=== PATIENT | female | born 1995 | race Caucasian/White ===

== ENCOUNTER 2016-09-08 11:59 | Observation (INO) ==
--- NOTE | 2016-09-08 12:16 | Emergency Department Note ---
Disposition Clinical Impression: Intrauterine UTI (urinary tract infection) Qualifiers: Urinary tract infection type: acute cystitis Hematuria presence: without hematuria Qualified Code(s): N30.00 - Acute cystitis without hematuria Disposition: Admitted As Inpatient Condition: Good Time of Disposition: 16:03 HPI - General Chief complaint: ED Vaginal Bleeding Stated complaint: cramping/bleeding (13w prego) Time Seen by Provider: 09/08/16 12:10 Source: patient Mode of arrival: ambulatory Limitations: no limitations Nursing Notes Reviewed: Yes Vital Signs Reviewed: Yes - History of Present Illness HPI Narrative: Concern about status. 21-year-old states she is about 13 weeks who comes in with crampy abdominal pain and some vaginal bleeding. States symptoms began this morning. 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 Consistency: constant Location: pelvis, abdomen Pain Severity: moderate Quality: cramping Improves with: none Worsens with: none Associated symptoms: Reports: vaginal bleeding Vaginal discharge: bloody Vaginal bleeding: light Confirmation of LMP: Yes : yes Number of weeks : 13 - Related Data : 1 Para: 0 Ab: 0 Home Medications Medication Instructions Recorded Confirmed Diphenhydramine HCl [Allergy] 25 mg PO DAILY 09/08/16 09/08/16 Famotidine [Heartburn Prevention] 20 mg PO BID 09/08/16 09/08/16 Ferrous Sulfate [Iron] 325 mg PO BID 09/08/16 09/08/16 Ondansetron [Zofran] 4 mg PO TID PRN 09/08/16 09/08/16 Potassium Chloride [Klor-Con 10] 10 meq PO DAILY 09/08/16 09/08/16 Promethazine [Phenergan] 25 mg PO Q4-6H PRN 09/08/16 09/08/16 Pyridoxine HCl [Vitamin B-6] 50 mg PO HS 09/08/16 09/08/16 Allergies Allergy/AdvReac Type Severity Reaction Status Date / Time No Known Allergies Allergy Verified 09/08/16 12:03 All systems ED: reviewed and negative except as stated. Constitutional: Denies: fever, chills, weakness, weight change Eyes: Denies: eye pain, eye discharge, vision change ENT ED: Denies: ear pain, throat pain, dental pain, hearing loss, epistaxis, congestion, dysphagia Cardiovascular: Denies: chest pain, palpitations, dyspnea on exertion, edema, syncope Respiratory: Denies: cough, dyspnea, wheezes, hemoptysis, stridor Gastrointestinal: Reports: abdominal pain. Denies: nausea, vomiting, diarrhea, constipation, hematemesis, melena, hematochezia Genitourinary: Reports: other (Vaginal bleeding). Denies: dysuria, frequency, hematuria, discharge Musculoskeletal: Denies: back pain, neck pain, arthralgia, myalgia Integumentary: Denies: rash, abrasion, lesions Neurological: Denies: headache, weakness, numbness, paresthesias, confusion, abnormal gait, vertigo Psychiatric: Denies: anxiety, depression, suicidal thoughts, homicidal thoughts , auditory hallucinations, visual hallucinations Endocrine: Denies: fatigue Hematological/Lymphatic: Denies: easy bleeding, easy bruising Allergic/Immunologic: Denies: facial swelling, urticaria PMH - Social History Smoking Status: Never smoker Alcohol use: Reports: none Drug use: Reports: none Physical Exam - General Limitations: no limitations General appearance: alert Course - Reevaluation(s) Reevaluation #1: 21-year-old who is in first trimester of who had some vaginal bleeding today. Workup included an ultrasound showed a 12 week 5 days. Patient has too numerous to count white cells in her urine. Patient was given a liter of fluid still feels nauseated and doesn't feel that she can eat. Discussed with [facility] will admit for IV hydration and fluids. Time: 16:02 - Consultations Consultation #1: Discussed with Sveta Pratt, we'll admit to [facility]PER[facility]. Time: 17:28 Consultation #2: Return call from [facility] CRUS[facility] OPERATOR and they will not take the patient as she is under 20 weeks and recommended admission to the hospitalist. Time: 17:31 Consultation #3: Discussed with Meredith Ivan nurse practitioner she is going to discuss it with her attending and she doesn't feel that she come to the medicine service. Time: 17:47 Vital Signs Temperature 97.6 F 09/08/16 12:03 Pulse Rate 141 09/08/16 12:03 Respiratory Rate 20 09/08/16 12:03 Blood Pressure 135/81 09/08/16 12:03 O2 Sat by Pulse Oximetry 96 09/08/16 12:03 Temperature 97.5 F L 09/09/16 15:37 Pulse Rate 104 09/09/16 15:37 Respiratory Rate 18 09/09/16 15:37 Blood Pressure 100/65 09/09/16 15:37 O2 Sat by Pulse Oximetry 98 09/09/16 15:37 Oxygen Delivery Oxygen Delivery Room Air OB/Uterine Contractions - Lab Data Lab results reviewed: Yes I reviewed the patient's lab results. Result diagrams: 09/09/16 04:34 09/09/16 04:34 Lab Results 09/08/16 09/08/16 09/08/16 Range/Units 12:35 12:35 15:04 WBC 6.4 (4.3-11.1) K/mcL RBC 3.39 L (3.82-4.97) M/mcL Hgb 8.9 L (11.5-15.4) g/dL Hct 27.6 L (35.3-44.9) % MCV 81.4 L (83.0-100.0) fL MCH 26.3 L (28.0-33.3) pg MCHC 32.2 (31.6-35.5) g/dL RDW 19.0 H (11.5-14.5) % Plt Count 246 (140-400) K/mcL MPV 9.0 L (9.4-12.4) fL Immature Gran % 2.0 (0-4) % Seg Neutrophils % 79.2 % Lymphocytes % 12.7 % Monocytes % 4.2 % Eosinophils % 1.6 % Basophils % 0.3 % Neutrophils # 5.1 (1.6-8.9) K/mcL Lymphocytes # 0.8 (0.6-4.6) K/mcL Monocytes # 0.3 (0.0-1.3) K/mcL Eosinophils # 0.1 (0.0-0.6) K/mcL Basophils # 0.0 (0.0-0.2) K/mcL Sodium 134 L (136-145) mEq/L Potassium 3.2 L (3.5-4.5) mEq/L Chloride 108 (98-109) mEq/L Carbon Dioxide 19 (19-29) mEq/L BUN 4 L (7-20) mg/dL Creatinine 0.60 (0.57-1.11) mg/dL Est GFR ( Amer) > 60 (> 60) Est GFR (Non-Af Amer) > 60 (> 60) BUN/Creatinine Ratio 7 (6-26) Glucose 112 H (70-99) mg/dL Calculated Osmolality 276 L (280-300) Calcium 8.3 L (8.6-10.8) mg/dL Beta HCG, Quant 95223 H (0-4) mIU/ml Urine Color Yellow (Yellow) Urine Clarity Cloudy A (Clear) Urine pH 7.5 (5.0-8.0) pH Units Ur Specific [place] 1.010 (1.010-1.025) Urine Protein Negative (Neg-Trace) mg/dL Urine Glucose (UA) Normal (Normal) mg/dL Urine Ketones Negative (Negative) mg/dL Urine Blood Moderate H (Negative) Urine Nitrite Negative (Negative) Urine Bilirubin Negative (Negative) Urine Urobilinogen Normal (Normal) mg/dL Ur Leukocyte Esterase Large H (Negative) Urine Microscopic RBC 3-5 H (0-3) per hpf Urine Microscopic WBC TNTC H (0-3) per hpf Ur Squamous Epith Cells Many H (None-Few) per lpf Urine Bacteria Many H (None-Few) per hpf Hyaline Casts Few (None-Few) per lpf Ur Culture Indicated? YES A (NO) - Radiology Data Radiology results reviewed: Yes I reviewed the patient's radiology results. Obstetrics Ultrasound 09/08/16 12:12 IMPRESSION: Single live intrauterine gestation with estimated age of 12 weeks 4 days. D/ / Britni Francis MD / Britni Francis MD Interpreting Provider: Britni Francis MD
[2016-09-08 13:16] LABS: Basophils % 0.3 %; Eosinophils # 0.1 K/mcL (0.0-0.6); Eosinophils % 1.6 %; Hematocrit 27.6 % (35.3-44.9); Hemoglobin 8.9 g/dL (11.5-15.4); Lymphocytes # 0.8 K/mcL (0.6-4.6); Lymphocytes % 12.7 %; Mean Corpuscular HGB Conc 32.2 g/dL (31.6-35.5); Mean Corpuscular Hemoglobin 26.3 pg (28.0-33.3); Mean Corpuscular Volume 81.4 fL (83.0-100.0); Monocytes # 0.3 K/mcL (0.0-1.3); Monocytes % 4.2 %; Neutrophils # 5.1 K/mcL (1.6-8.9); Platelet Count 246 K/mcL (140-400); Red Blood Count 3.39 M/mcL (3.82-4.97); Segmented Neutrophils % 79.2 %
[2016-09-08 13:29] LABS: BUN/Creatinine Ratio 7 (6-26); Calcium 8.3 mg/dL (8.6-10.8); Carbon Dioxide 19 mEq/L (19-29); Chloride 108 mEq/L (98-109); Glucose 112 mg/dL (70-99); Osmolality,Calculated 276 (280-300); Potassium 3.2 mEq/L (3.5-4.5); Sodium 134 mEq/L (136-145); eGFR For African Americans > 60 (> 60); eGFR For Non-African Americans > 60 (> 60)
[2016-09-08 13:30] LABS: Blood Urea Nitrogen 4 mg/dL (7-20)
[2016-09-08] MEDS ORDERED: 0.9 % Sodium Chloride 1,000 ML IVC ONE (15:04)
[2016-09-08 15:33] LABS: Bilirubin,Urine Negative (Negative); Blood,Urine Moderate (Negative); Clarity,Urine Cloudy (Clear); Color,Urine Yellow (Yellow); Glucose,Urine (UA) Normal (Normal); Ketones,Urine Negative (Negative); Leukocyte Esterase,Urine Large (Negative); Nitrite,Urine Negative (Negative); PH,Urine 7.5 pH Units (5.0-8.0); Protein,Urine Negative (Neg-Trace); Urobilinogen,Urine Normal (Normal)
[2016-09-08 15:40] LABS: Bacteria,Urine Many per hpf (None-Few); Hyaline Casts,Urine Few per lpf (None-Few); Squamous Epithelial Cell,Urine Many per lpf (None-Few); WBC,Urine TNTC per hpf (0-3)
[2016-09-08] MEDS ORDERED: Acetaminophen 325 MG TABLET PO ONE (17:12)
[2016-09-08] MEDS ORDERED: Naloxone 0.4 MG/ML INJ IVP PRN (21:17)
[2016-09-08] MEDS ORDERED: Ondansetron 4 MG/2 ML VIAL IVP PRN (21:17)
[2016-09-08] MEDS ORDERED: Pyridoxine (B-6) 50 MG TABLET PO SCH (21:45)
--- NOTE | 2016-09-08 21:48 | Internal Med History&Physical ---
<Meredith Ivan - Last Filed: 09/08/16 22:21> Date of Encounter: 09/08/16 Time of Encounter: 21:00 Assessment and Plan (1) UTI (urinary tract infection) Current visit: Yes Status: Acute 1 is in complaining of lower abdominal pain UA did reveal moderate blood and large amount of gastritis many bacteria. She is started on Rocephin IV due to nausea. Presently she is requesting food, as long as nausea subsided patient will be started on oral antibiotics upon discharge-follow up with AUTHOR AGENT as outpatient Qualifiers: Urinary tract infection type: acute cystitis Hematuria presence: without hematuria Qualified Code(s): N30.00 - Acute cystitis without hematuria (2) Intrauterine Current visit: Yes Status: Acute 1 patient is 12 weeks 4 days gestation per vaginal ultrasound-patient is to continue follow-up with AUTHOR AGENT as outpatient (3) Anemia Current visit: Yes Status: Acute 1 we will check iron profile in am 2 continue with ferrous sulfate twice a day 3 recheck CBC in a.m. Qualifiers: Anemia type: unspecified type Qualified Code(s): D64.9 - Anemia, unspecified (4) Hypokalemia Current visit: Yes Status: Acute 1 potassium 3.2. We will replace and recheck in a.m. 2 continue with potassium supplement daily Internal Medicine - H&P: HPI Chief complaint: Abdominal pain spotting 12 weeks Admitted From: Emergency Dept Plans for Post Hospital Care: Home History of present illness: Ms. Coates is a 21 year old female with no past medical history, she is presently 12 weeks . According to the patient she was awakened this morning with abdominal cramping pain radiating across her lower abdomen. She did get up and use of bathroom when she noted drops of bright red blood in the toilet. She presented to the ER for evaluation. Operative reveal no leukocytosis hemoglobin 8.9 potassium is 3.2 urinalysis was performed which did reveal moderate amount of blood large amount of leuk esters and many bacteria urine vaginal ultrasound was completed which did show a live intrauterine 12 week 5 day fetus, no blood in vaginal vault. Patient was tachycardic heart rate was 140 on presentation and has been 120-110 She nauseated and unable to eat she was given IV fluids. She was given IV Rocephin and has been admitted for further workup evaluation. Presently the patient is requesting food she denies any nausea this time. She Sinus tach on monitor I review this case with Dr. Espinoza agrees with plan. Past Med Surg Social Fam HX - Past Medical History Medical history: other Psychiatric history: no psych history - Past Surgical History Surgical History: other - Social History Smoking Status: Never smoker Smokeless Tobacco Status: No Alcohol use: none Drug use: none - Family History Mother Living Status: Still Living Hx Family Cardiac Disorders: Yes (blood clots) Hx Family Neurologic Disorders: Yes (mini strokes, seizures, brain bleed) Father Living Status: Still Living Internal Medicine - H&P: Meds Diphenhydramine HCl [Allergy] 25 mg PO DAILY 09/08/16 [History] Famotidine [Heartburn Prevention] 20 mg PO BID 09/08/16 [History] Ferrous Sulfate [Iron] 325 mg PO BID 09/08/16 [History] Ondansetron [Zofran] 4 mg PO TID PRN 09/08/16 [History] Potassium Chloride [Klor-Con 10] 10 meq PO DAILY 09/08/16 [History] Promethazine [Phenergan] 25 mg PO Q4-6H PRN 09/08/16 [History] Pyridoxine HCl [Vitamin B-6] 50 mg PO HS 09/08/16 [History] cephALEXin [Keflex] 500 mg PO QID #40 capsule 09/08/16 [Rx] Allergies No Known Allergies Allergy (Verified 09/08/16 12:03) All Systems PM: A 10-system review of systems was performed and is negative for pertinent findings except as documented above in the HPI. - Constitutional Constitutional: no chills, no fever(s), no night sweats - EENT Eyes: no change in vision, no discharge, no pain, no photophobia Nose, mouth and throat: no dysphagia, no nasal discharge, no neck pain, no sore throat - Cardiovascular Cardiovascular ROS IM: no chest pain, no diaphoresis, no dyspnea, no lightheadedness, no palpitations, no syncope - Respiratory Respiratory: no cough, no dyspnea, no wheezing, no excessive phlegm production - Gastrointestinal Gastrointestinal: abdominal pain - Genitourinary Genitourinary: no change in urinary stream, no dysuria, no flank pain, no hematuria - Musculoskeletal Musculoskeletal ROS IM: no numbness, no tingling - Integumentary Integumentary IM: no rash, no unusual bruising - Neurological Neurological ROS: no confusion, no convulsions, no focal weakness, no numbness, no tingling, no tremor(s) - Hematologic/Lymphatic Hematologic/Lymphatic: no easy bruising - Constitutional Vitals: Temp Pulse Resp BP Pulse Ox 99.3 F 111 18 123/73 97 09/08/16 19:53 09/08/16 19:53 09/08/16 19:53 09/08/16 19:53 09/08/16 19:53 General appearance: Present: A&O X 3, answers questions appropriately - Head Head exam: Present: atraumatic, normocephalic - Eye Eye exam: Present: PERRL, conjuntiva pink, sclera anicteric Pupils: Present: PERRL - Neck Neck exam general surgery: Present: supple, trachea midline. Absent: lymphadenopathy - Respiratory Respiratory exam: Present: CTAB. Absent: accessory muscle use, rales, rhonchi, wheezes - Cardiovascular Cardiovascular exam: Present: RRR, +S1, +S2. Absent: diastolic murmur, gallop, rubs, systolic murmur - GI/Abdominal GI/Abdominal exam: Present: normal bowel sounds, soft, no peritoneal signs. Absent: distended, tenderness - Extremities Exam Extremities exam: Present: warm, radial pulses palpable and symetrical. Absent : calf tenderness, cyanotic, pedal edema - Neurological Exam Neurological exam: Present: CN II-XII intact, oriented X3, no focal deficits. Absent: pronater drift, facial droop, speech deficit - Skin Skin exam: Present: dry, intact Internal Med - H&P Results - Labs CBC & Chem 7: 09/08/16 12:35 09/08/16 12:35 - Diagnostic Studies Other Images Additional comments: Obstetrics Ultrasound 09/08/16 12:12 IMPRESSION: Single live intrauterine gestation with estimated age of 12 weeks 4 days. D/ / Britni Francis MD / Britni Francis MD Interpreting Provider: Britni Francis MD - VTE Reasons for not Prescribing Prophylaxis: Medical contraindication <Tra Espinoza - Last Filed: 09/08/16 23:06> Date of Encounter: 09/08/16 Internal Medicine - H&P: HPI History of present illness: Ms. Coates is a 21 year old female All Systems PM: A 10-system review of systems was performed and is negative for pertinent findings except as documented above in the HPI. - Constitutional Vitals: Temp Pulse Resp BP Pulse Ox 98.3 F 111 17 115/68 98 09/08/16 22:56 09/08/16 22:56 09/08/16 22:56 09/08/16 22:56 09/08/16 22:56 Internal Med - H&P Results - Labs CBC & Chem 7: 09/08/16 12:35 09/08/16 12:35 - Attending Attestation I independently obtained history and examined this patient and my medical decision-making was reviewed with the nurse practitioner, Meredith Ivan. I agree with the documented findings, disposition and treatment plan as described. My findings are summarized below: Patient is in no acute distress awake alert oriented. Heart is tachycardic and regular S1-S2. Lungs are clear. Abdomen is soft, there is suprapubic tenderness to palpation. Plan: IV antibiotics, follow-up urine culture. Tylenol and Pyridium as needed for pain. Continue care. Ferrous sulfate for anemia. Follow-up iron studies.
[2016-09-08] MEDS: Acetaminophen 325 MG TABLET PO PRN (22:48)
[2016-09-09 05:21] LABS: Basophils % 0.5 %; Eosinophils # 0.1 K/mcL (0.0-0.6); Eosinophils % 2.1 %; Hematocrit 27.4 % (35.3-44.9); Hemoglobin 8.8 g/dL (11.5-15.4); Immature Granulocytes % 2.1 % (0-4); Lymphocytes # 1.2 K/mcL (0.6-4.6); Lymphocytes % 20.5 %; Mean Corpuscular HGB Conc 32.1 g/dL (31.6-35.5); Mean Corpuscular Hemoglobin 26.7 pg (28.0-33.3); Mean Corpuscular Volume 83.3 fL (83.0-100.0); Mean Platelet Volume 9.4 fL (9.4-12.4); Monocytes # 0.3 K/mcL (0.0-1.3); Monocytes % 5.5 %; Neutrophils # 3.9 K/mcL (1.6-8.9); Platelet Count 223 K/mcL (140-400); Red Blood Count 3.29 M/mcL (3.82-4.97); Red Cell Distribution Width 19.5 % (11.5-14.5); Segmented Neutrophils % 69.3 %
[2016-09-09 05:32] LABS: BUN/Creatinine Ratio 7 (6-26); Calcium 8.7 mg/dL (8.6-10.8); Carbon Dioxide 21 mEq/L (19-29); Chloride 110 mEq/L (98-109); Glucose 91 mg/dL (70-99); Magnesium 1.8 mg/dL (1.6-2.6); Osmolality,Calculated 282 (280-300); Potassium 3.7 mEq/L (3.5-4.5); Sodium 138 mEq/L (136-145); eGFR For African Americans > 60 (> 60); eGFR For Non-African Americans > 60 (> 60)
[2016-09-09 05:34] LABS: % Iron Saturation 16 % (15-50); Blood Urea Nitrogen 4 mg/dL (7-20); Iron 47 mcg/dL (50-170); Transferrin 210 mg/dL (180-382)
[2016-09-09] MEDS ORDERED: Famotidine 20 MG TABLET PO SCH (07:30)
[2016-09-09] MEDS: Acetaminophen 325 MG TABLET PO PRN ×2 (10:10→14:12)
[2016-09-09] MEDS ORDERED: *HR* HYDROcodone/Acet 5/325 mg TABLET PO ONE (14:26)
--- NOTE | 2016-09-09 14:26 | Internal Med Progress Note ---
Date of Encounter: 09/09/16 Time of Encounter: 10:00 - Assessment and plan (1) DVT prophylaxis Current Visit: Yes Status: Acute Assessment and plan: Lovenox subcutaneously (2) Intrauterine Current Visit: Yes Status: Acute Assessment and plan: US pelvis shows live gestation. We will consult G[facility]ER (3) UTI (urinary tract infection) Current Visit: Yes Status: Acute Assessment and plan: We will continue Rocephin iv. no signs of pyelonephritis. Follow-up for urine culture. Qualifiers: Urinary tract infection type: acute cystitis Hematuria presence: without hematuria Qualified Code(s): N30.00 - Acute cystitis without hematuria - Time Spent With Patient 25 - 35 minutes - Subjective Interval history: Patient is a 21-year-old female with 12 weeks +4 days admitted for UTI. Patient was seen and examined. Still complaining lower abdominal pain. Virginal spotting stopped. Denies dysuria, increased frequency, or urgency. Denies nausea vomiting, back pain, flank pain. Complaining of right arm pain and discomfort. Vital signs stable. - Constitutional Vitals: Temp Pulse Resp BP Pulse Ox 98.3 F 111 16 127/76 98 09/09/16 11:34 09/09/16 11:34 09/09/16 11:34 09/09/16 11:34 09/09/16 11:34 General appearance: Present: A&O X 3, answers questions appropriately - Head Head exam: Present: atraumatic, normocephalic - Eye Eye exam: Present: PERRL, conjuntiva pink, sclera anicteric Pupils: Present: PERRL - Neck Neck exam general surgery: Present: supple, trachea midline. Absent: lymphadenopathy - Respiratory Respiratory exam: Present: CTAB. Absent: accessory muscle use, rales, rhonchi, wheezes - Cardiovascular Cardiovascular exam: Present: RRR, +S1, +S2. Absent: diastolic murmur, gallop, rubs, systolic murmur - GI/Abdominal GI/Abdominal exam: Present: normal bowel sounds, soft, tenderness (Mild lower abdominal tenderness without rebound or guarding), no peritoneal signs. Absent : distended - Extremities Exam Extremities exam: Present: full ROM, warm, radial pulses palpable and symetrical. Absent: calf tenderness, cyanotic, pedal edema - Neurological Exam Neurological exam: Present: CN II-XII intact, oriented X3, no focal deficits. Absent: pronater drift, facial droop, speech deficit - Skin Skin exam: Present: dry, intact Internal Medicine: Result - Labs CBC & Chem 7: 09/09/16 04:34 09/09/16 04:34 Labs: Short CBC 09/09/16 Range/Units 04:34 WBC 5.7 (4.3-11.1) K/mcL Hgb 8.8 L (11.5-15.4) g/dL Hct 27.4 L (35.3-44.9) % Plt Count 223 (140-400) K/mcL Neutrophils # 3.9 (1.6-8.9) K/mcL BMP 09/09/16 04:34 Sodium 138 Potassium 3.7 Chloride 110 H Carbon Dioxide 21 BUN 4 L Creatinine 0.56 L Glucose 91 Calcium 8.7 - VTE Reasons for not Prescribing Prophylaxis: Medical contraindication Consult Discharge Plan - Plan Referrals: Jean-Paul Villagomez MD [Primary Care Provider] -
--- NOTE | 2016-09-09 14:34 | OB/GYN Consult Note ---
Date of Encounter: 09/09/16 Time of Encounter: 14:27 Assessment and Plan (1) Abdominal pain Current Visit: Yes Status: Acute Unknown source of lower abdominal pain. WBC within normal limits Urinalysis - contaminated Urine culture - no growth Pelvic ultrasound - IUP with no evidence of bleeding Qualifiers: Abdominal location: lower abdomen, unspecified Qualified Code(s): R10.30 - Lower abdominal pain, unspecified (2) Anemia Current Visit: Yes Status: Acute Hemoglobin 8.9 upon admission Continue ferrous sulfate 325mg po bid upon discharge. Follow up in office at 16 weeks of - will repeat CBC at this time. Qualifiers: Anemia type: unspecified type Qualified Code(s): D64.9 - Anemia, unspecified (3) 12 weeks gestation of Current Visit: Yes Status: Acute Patient exhibiting normal complaints of early . We will be discharging her the PHOTOGRAPH[facility] EQUIPMENT TECHNICIAN service for this hospitalization Please feel free to contact us with any additional questions. Follow up in the office at 16 weeks gestation with routine care. History of Present Illness Consult date: 09/09/16 Requesting physician: Tai Starr Reason for consult: pelvic pain Chief complaint: Abdominal pain and vaginal bleeding History of present illness: Patient presents to the ED on 09/08/2016 with c/o vaginal bleeding and pelvic pain. She declined a pelvic exam in the ED, but states that she has not had bleeding since initial episode. She denies intercourse in the past 72 hours. Upon assessment in the ED, her ultrasound showed an IUP without evidence of a source of bleeding, a hemoglobin of 8.9, and positive leukocytes, blood, and bacteria in her urine. Upon assessment today, patient c/o severe (10/10) pain in her right arm that radiates down her back. She is writhing in the bed and has difficulty sitting still. FHTs are present with doppler at >150 beats per minute. Past Med Surg Social Fam HX - Past Medical History Medical history: other Psychiatric history: no psych history - Past Surgical History Surgical History: other - Social History Smoking Status: Never smoker Smokeless Tobacco Status: No Alcohol use: none Drug use: none - Family History Mother Living Status: Still Living Hx Family Cardiac Disorders: Yes (blood clots) Hx Family Neurologic Disorders: Yes (mini strokes, seizures, brain bleed) Father Living Status: Still Living Medications and Allergies Diphenhydramine HCl [Allergy] 25 mg PO DAILY 09/08/16 [History] Famotidine [Heartburn Prevention] 20 mg PO BID 09/08/16 [History] Ferrous Sulfate [Iron] 325 mg PO BID 09/08/16 [History] Ondansetron [Zofran] 4 mg PO TID PRN 09/08/16 [History] Potassium Chloride [Klor-Con 10] 10 meq PO DAILY 09/08/16 [History] Promethazine [Phenergan] 25 mg PO Q4-6H PRN 09/08/16 [History] Pyridoxine HCl [Vitamin B-6] 50 mg PO HS 09/08/16 [History] cephALEXin [Keflex] 500 mg PO QID #40 capsule 09/08/16 [Rx] Allergies No Known Allergies Allergy (Verified 09/08/16 12:03) Review of Systems All Systems: reviewed and no additional remarkable complaints except as stated Gastrointestinal: as per HPI Exam - Vital Signs Vital signs: Initial Vital Signs Temp Pulse Resp BP Pulse Ox 97.6 F 141 20 135/81 96 09/08/16 12:03 09/08/16 12:03 09/08/16 12:03 09/08/16 12:03 09/08/16 12:03 - Constitutional Constitutional: well developed, well nourished, no acute distress, average body habitus - HEENT HEENT: Normocephaly, Mucus Membranes Moist - Abdomen Abdomen: Present: bowel sounds normal, gravid. Absent: non tender (suprapubic tenderness) - Extremities Extremities exam: normal capillary refill, normal inspection, radial pulses palpable and symetrical - Uterus Uterus exam: Present: normal size (FHTs with doppler present) Results Result Diagrams: 09/09/16 04:34 09/09/16 04:34 Abnormal lab results RBC 3.29 M/mcL (3.82-4.97) L 09/09/16 04:34 Hgb 8.8 g/dL (11.5-15.4) L 09/09/16 04:34 Hct 27.4 % (35.3-44.9) L 09/09/16 04:34 MCH 26.7 pg (28.0-33.3) L 09/09/16 04:34 RDW 19.5 % (11.5-14.5) H 09/09/16 04:34 Chloride 110 mEq/L (98-109) H 09/09/16 04:34 BUN 4 mg/dL (7-20) L 09/09/16 04:34 Creatinine 0.56 mg/dL (0.57-1.11) L 09/09/16 04:34 Iron 47 mcg/dL (50-170) L 09/09/16 04:34 Beta HCG, Quant 98355 mIU/ml (0-4) H 09/08/16 12:35 Urine Clarity Cloudy (Clear) A 09/08/16 15:04 Urine Blood Moderate (Negative) H 09/08/16 15:04 Ur Leukocyte Esterase Large (Negative) H 09/08/16 15:04 Urine Microscopic RBC 3-5 per hpf (0-3) H 09/08/16 15:04 Urine Microscopic WBC TNTC per hpf (0-3) H 09/08/16 15:04 Ur Squamous Epith Cells Many per lpf (None-Few) H 09/08/16 15:04 Urine Bacteria Many per hpf (None-Few) H 09/08/16 15:04 Ur Culture Indicated? YES (NO) A 09/08/16 15:04 All other labs normal. Consult Discharge Plan - Plan Referrals: Jean-Paul Villagomez MD [Primary Care Provider] - Leny Del Cid CNM [Advanced Practice Nurse] - (Continue routine care as scheduled. )
[2016-09-09 15:38] VITALS: BP 100/65
--- NOTE | 2016-09-09 15:56 | Discharge Summary ---
Date of Encounter: 09/09/16 Time of Encounter: 15:00 - Discharge Diagnosis (1) DVT prophylaxis Priority: Secondary Status: Acute (2) Intrauterine Priority: Secondary Status: Acute (3) UTI (urinary tract infection) Priority: Primary Status: Acute Qualifiers: Urinary tract infection type: acute cystitis Hematuria presence: without hematuria Qualified Code(s): N30.00 - Acute cystitis without hematuria - Discharge Medications Home Medications: Diphenhydramine HCl [Allergy] 25 mg PO DAILY 09/08/16 [History] Famotidine [Heartburn Prevention] 20 mg PO BID 09/08/16 [History] Ferrous Sulfate [Iron] 325 mg PO BID 09/08/16 [History] Ondansetron [Zofran] 4 mg PO TID PRN 09/08/16 [History] Potassium Chloride [Klor-Con 10] 10 meq PO DAILY 09/08/16 [History] Promethazine [Phenergan] 25 mg PO Q4-6H PRN 09/08/16 [History] Pyridoxine HCl [Vitamin B-6] 50 mg PO HS 09/08/16 [History] Allergies/Adverse Reactions: Allergies No Known Allergies Allergy (Verified 09/08/16 12:03) Date of admission: 09/08/16 18:51 Primary care physician: Jean-Paul Villagomez, Consults: 09/09/16 10:53 Consult to OCCUPATIONAL HEALTH NURSE SUPERVISOR [CONS] Routine Consulting Provider: HAULAGE ENGINE OPERATOR Symone Reason for Consult: Lower abd pain and virginal spotting, 12 wk Call Completed: Yes Discharging clinician: Tai Starr Anticipated date of discharge: 09/09/16 - Patient Status Disposition: Home, Self-Care Condition: Good Functional capacity at discharge: independent ambulation Overall status at discharge: patient is back to baseline - Discharge Instructions Follow Up With: Leny Del Cid CNM [Advanced Practice Nurse] - (Continue routine care as scheduled. ) Jean-Paul Villagomez MD [Primary Care Provider] - - Diet and Activity Activity: increase activity as tolerated Diet: regular diet Interval History: HPI: Ms. Coates is a 21 year old female with no past medical history, she is presently 12 weeks . According to the patient she was awakened this morning with abdominal cramping pain radiating across her lower abdomen. She did get up and use of bathroom when she noted drops of bright red blood in the toilet. She presented to the ER for evaluation. Operative reveal no leukocytosis hemoglobin 8.9 potassium is 3.2 urinalysis was performed which did reveal moderate amount of blood large amount of leuk esters and many bacteria urine vaginal ultrasound was completed which did show a live intrauterine 12 week 5 day fetus, no blood in vaginal vault. Patient was tachycardic heart rate was 140 on presentation and has been 120-110 She nauseated and unable to eat she was given IV fluids. She was given IV Rocephin and has been admitted for further workup evaluation. Presently the patient is requesting food she denies any nausea this time. She Sinus tach on monitor. Hospital course: Ms. Coates is a 21 year old female admitted for UTI. Pt was treated with rocephin iv. Urine culture negative. Pt c/o hx of spotting and lower abd pain, HAULAGE ENGINE OPERATOR consult saw pt, no further test needed. Pt will discharge home and f/u with PCP and HAULAGE ENGINE OPERATOR as outpatient. I saw and examined pt this afternoon. She is awake, alert, vitals stable. Denies nausea, vomiting, abd pain, flank pain. Denies dysuria, frequency change or urgency. Pt had two dose of rocephin already, no further abx warranted. Pt will be discharge home and follow up with PCP and HAULAGE ENGINE OPERATOR as outpatient. - Time Spent with Patient Total time spent providing and/or coordinating discharge services:25 min Less than 30 minutes - Constitutional Vitals: Temp Pulse Resp BP Pulse Ox 97.5 F L 104 18 100/65 98 09/09/16 15:37 09/09/16 15:37 09/09/16 15:37 09/09/16 15:37 09/09/16 15:37 General appearance: Present: A&O X 3, pleasant, no acute distress, answers questions appropriately - Head Head exam: Present: atraumatic, normocephalic - Eye Eye exam: Present: PERRL, conjuntiva pink, sclera anicteric Pupils: Present: PERRL - Neck Neck exam general surgery: Present: supple, trachea midline. Absent: lymphadenopathy - Respiratory Respiratory exam: Present: CTAB. Absent: accessory muscle use, rales, rhonchi, wheezes - Cardiovascular Cardiovascular exam: Present: RRR, +S1, +S2. Absent: diastolic murmur, gallop, rubs, systolic murmur - GI/Abdominal GI/Abdominal exam: Present: normal bowel sounds, soft, no peritoneal signs. Absent: distended, tenderness - Extremities Exam Extremities exam: Present: warm, radial pulses palpable and symetrical. Absent : calf tenderness, cyanotic, pedal edema - Neurological Exam Neurological exam: Present: CN II-XII intact, oriented X3, no focal deficits. Absent: pronater drift, facial droop, speech deficit - Skin Skin exam: Present: dry, intact - VTE Reasons for not Prescribing Prophylaxis: Medical contraindication
[2016-09-10] MEDS ORDERED: *HR* Enoxaparin 40 MG/0.4 ML SYRINGE SQ SCH (06:00)
== END 2016-09-09 17:41 | disposition home or self-care (01) ==
LOC: 3BNU 11:59 → EMEROO 11:59 → SUATTDRO 18:51 → 3BNU 19:46
PROVIDERS: ADMIT Nurse Practitioner Acute Care; ATTEND Internal Medicine

== ENCOUNTER → 2017-01-03 18:00 | Observation (INO) ==
[2017-01-03 15:34] LABS: Bilirubin,Urine Small (Negative); Blood,Urine Negative (Negative); Clarity,Urine Turbid (Clear); Color,Urine Dark Yellow (Yellow); Glucose,Urine (UA) Normal (Normal); Ketones,Urine Negative (Negative); Leukocyte Esterase,Urine Small (Negative); Nitrite,Urine Negative (Negative); PH,Urine 6.5 pH Units (5.0-8.0); Protein,Urine 30 mg/dL (Neg-Trace); Specific Gravity,Urine 1.027 (1.010-1.025); Urobilinogen,Urine Normal (Normal)
[2017-01-03 15:36] LABS: Bacteria,Urine Many per hpf (None-Few); RBC,Urine 0-3 per hpf (0-3); Squamous Epithelial Cell,Urine Many per lpf (None-Few); WBC,Urine 30-50 per hpf (0-3)
[2017-01-03 15:53] VITALS: BP 120/72
[2017-01-03 16:27] LABS: Basophils % 0.3 %; Eosinophils # 0.1 K/mcL (0.0-0.6); Eosinophils % 1.1 %; Hematocrit 34.3 % (35.3-44.9); Hemoglobin 11.8 g/dL (11.5-15.4); Lymphocytes # 1.4 K/mcL (0.6-4.6); Lymphocytes % 15.6 %; Mean Corpuscular HGB Conc 34.4 g/dL (31.6-35.5); Mean Corpuscular Hemoglobin 32.4 pg (28.0-33.3); Mean Corpuscular Volume 94.2 fL (83.0-100.0); Mean Platelet Volume 9.9 fL (9.4-12.4); Monocytes # 0.5 K/mcL (0.0-1.3); Monocytes % 5.8 %; Neutrophils # 6.7 K/mcL (1.6-8.9); Platelet Count 207 K/mcL (140-400); Red Blood Count 3.64 M/mcL (3.82-4.97); Red Cell Distribution Width 14.3 % (11.5-14.5); Segmented Neutrophils % 76.2 %
[2017-01-03 16:42] LABS: Alanine Aminotransferase 8 Units/L (0-55); Albumin 2.9 g/dL (3.5-5.0); Albumin/Globulin Ratio 0.8 (1.1-2.2); Alkaline Phosphatase 83 Units/L (38-126); Amylase 37 Units/L (25-125); Aspartate Amino Transferase 14 Units/L (5-34); BUN/Creatinine Ratio 5 (6-26); Bilirubin,Total 0.4 mg/dL (0.2-1.2); Blood Urea Nitrogen 3 mg/dL (7-20); Calcium 8.9 mg/dL (8.6-10.8); Carbon Dioxide 21 mEq/L (19-29); Chloride 107 mEq/L (98-109); Globulin 3.7 g/dL (2.4-3.5); Glucose 96 mg/dL (70-99); Lipase 11 Units/L (8-78); Osmolality,Calculated 284 (280-300); Potassium 3.2 mEq/L (3.5-4.5); Sodium 139 mEq/L (136-145); Total Protein 6.6 g/dL (6.0-8.3); eGFR For African Americans > 60 (> 60); eGFR For Non-African Americans > 60 (> 60)
--- NOTE | 2017-01-03 16:54 | OB/GYN Progress Note ---
Date of Encounter: 01/03/17 Time of Encounter: 16:48 - Assessment and Plan (1) Abdominal pain Current Visit: Yes Status: Acute Patient presented for abdominal pain. CBC, CMP and urinalysis were ordered and appear to be unchanged from previous. She does still have some leukocyte esterase and bacteria in her urine. This will be sent for culture. Patient appears to be a little dry based on her urinalysis so we have given a liter of lactated ringers. After the liter bolus she states that she is feeling much better. Patient will be discharged home with recommendations to return if she has any worsening of her symptoms including bleeding like a period, gush of fluids, worsening of her pain, decreased movement, or any other symptoms that may be concerning to her. Qualifiers: Abdominal location: lower abdomen, unspecified Qualified Code(s): R10.30 - Lower abdominal pain, unspecified Subjective - Subjective Interval history: Patient is a 21 year old female that is presenting to L&D at 29 weeks gestation for passage of her mucus plug, contractions and abdominal pain. She states that last night around 2200 she passed her mucus plug and was having contractions every 5-10 minutes. She states that she is not really having contractions today, just abdominal pain. She states that the pain is located in her lower abdomen and RUQ. She describes the pain as pressure. She states that the abdominal pain is worse when she lays on her back and is better when she lays on her side. She states that she gets nauseated when she eats. She states that she has never had anything like this before. Patient denies any loss of fluid, vaginal discharge or bleeding. Patient states that she has had some swelling in her feet bilaterally. She denies any pain or tenderness in the lower extremities. She states that she is still feeling the baby move a lot. Antepartum ROS: movement normal, contractions (States that she wa having contractions last night every 5-10 minutes), no new complaints, no loss of fluid , no vaginal bleeding Objective - Vital Signs Vital Signs: Vital Signs Temp Pulse Resp BP 01/03/17 15:46 97.0 F L 90 12 120/72 Intake and Output 01/03/17 01/03/17 01/03/17 07:59 15:59 23:59 Other: Weight 86.6 kg Patient Weight 01/03/17 23:59 Weight 86.6 kg - Exam FHR comments: FHR 145 with moderate variability. Difficult to trace due to maternal habitus. Auscultation: bilateral: normal Abdomen: Present: normal appearance, soft, gravid, tenderness (RUQ, RLQ and suprapubic) Cervical dilation: 0/Closed Cervix effacement: 0/Thick station: high - Labs Labs: Abnormal lab results RBC 3.64 M/mcL (3.82-4.97) L 01/03/17 16:10 Hct 34.3 % (35.3-44.9) L 01/03/17 16:10 Potassium 3.2 mEq/L (3.5-4.5) L 01/03/17 16:10 BUN 3 mg/dL (7-20) L 01/03/17 16:10 BUN/Creatinine Ratio 5 (6-26) L 01/03/17 16:10 Albumin 2.9 g/dL (3.5-5.0) L 01/03/17 16:10 Globulin 3.7 g/dL (2.4-3.5) H 01/03/17 16:10 Albumin/Globulin Ratio 0.8 (1.1-2.2) L 01/03/17 16:10 Urine Clarity Turbid (Clear) A 01/03/17 15:15 Ur Specific [place] 1.027 (1.010-1.025) H 01/03/17 15:15 Urine Protein 30 mg/dL (Neg-Trace) H 01/03/17 15:15 Urine Bilirubin Small (Negative) H 01/03/17 15:15 Ur Leukocyte Esterase Small (Negative) H 01/03/17 15:15 Urine Microscopic WBC 30-50 per hpf (0-3) H 01/03/17 15:15 Ur Squamous Epith Cells Many per lpf (None-Few) H 01/03/17 15:15 Urine Bacteria Many per hpf (None-Few) H 01/03/17 15:15 Ur Culture Indicated? YES (NO) A 01/03/17 15:15
[2017-01-03 17:34] LABS: Amphetamine Screen,Urine Negative ng/mL (Cutoff=1000); Barbiturate Screen,Urine Negative ng/mL (Cutoff=200); Benzodiazepines Screen,Urine Negative ng/mL (Cutoff=200); Cannabinoid Screen,Urine Negative ng/mL (Cutoff = 50); Cocaine Screen,Urine Negative ng/mL (Cutoff= 300); Opiate Screen,Urine Negative ng/mL (Cutoff=300); Phencyclidine Screen,Urine Negative ng/mL (Cutoff=25)
[~2017-01-03 18:00] MED LIST: Ringers Solution, Lactated 1,000 ML IVC ONE
== END | disposition home or self-care (01) ==
LOC: 1NENULAB
PROVIDERS: ADMIT Obstetrics & Gynecology; ATTEND Obstetrics & Gynecology

== ENCOUNTER 2017-01-19 14:24 | Observation (INO) ==
--- NOTE | 2017-01-19 12:03 | OB/GYN Progress Note ---
Date of Encounter: 01/19/17 Time of Encounter: 12:03 - Assessment and Plan (1) Abdominal pain Current Visit: Yes Status: Acute Patient presents to L&D with abdominal pain that has been present since yesterday and has been progressively getting worse Urinalysis UDS Cervix is closed, thick and high US retoperitoneal complete to R/O possible kidney stone Qualifiers: Abdominal location: lower abdomen, unspecified Qualified Code(s): R10.30 - Lower abdominal pain, unspecified (2) 31 weeks gestation of Current Visit: Yes Status: Acute Patient is 31w5d (3) Kidney stone complicating Current Visit: Yes Status: Acute Renal US shows Mild right hydronephrosis. No right ureteral jet is seen. Consider further evaluation with CT to evaluate for obstructive uropathy. No nephrolithiasis identified by ultrasound. No left hydronephrosis, however there is increased left renal vascularity which may reflect increased left renal perfusion in the setting of right renal hydronephrosis. No nephrolithiasis identified by ultrasound. Discussed with melody Rider to manage out patient if pain improves po pain medication. Will increase LR to 200, and if pian improves with percocet will discharge home. Qualifiers: Trimester: third trimester Qualified Code(s): O26.833 - related renal disease, third trimester; N20.0 - Calculus of kidney; N20.0 - Calculus of kidney Subjective - Subjective Principal diagnosis: Contractions Interval history: Patient is a 21 year old female at 31w1d presents to L&D for the feeling of contractions and back pain . She states that they began yesterday and have become more painful today while she was at work.. She denies any loss of fluid or vaginal bleeding. Reports good movement. Denies any complications with the . Antepartum ROS: new complaints, movement normal, contractions, no loss of fluid, no vaginal bleeding Objective - Vital Signs Vital Signs: Intake and Output 01/18/17 01/19/17 01/19/17 23:59 07:59 15:59 Other: Weight 86.1 kg Patient Weight 01/19/17 23:59 Weight 86.1 kg - Exam FHR: auscultation normal FHR comments: Baseline 135 Auscultation: bilateral: normal Abdomen: Present: normal appearance, soft, gravid Cervical dilation: Closed per spray drier Cervix effacement: Thick per spray drier station: high per spray drier Comments: Patient appear to be in a significant amount of pain upon arrival to L&D
[2017-01-19 12:26] LABS: Amphetamine Screen,Urine Negative ng/mL (Cutoff=1000); Barbiturate Screen,Urine Negative ng/mL (Cutoff=200); Benzodiazepines Screen,Urine Negative ng/mL (Cutoff=200); Cannabinoid Screen,Urine Negative ng/mL (Cutoff = 50); Cocaine Screen,Urine Negative ng/mL (Cutoff= 300); Opiate Screen,Urine Negative ng/mL (Cutoff=300); Phencyclidine Screen,Urine Negative ng/mL (Cutoff=25)
[2017-01-19 12:28] LABS: Bilirubin,Urine Negative (Negative); Blood,Urine Negative (Negative); Clarity,Urine Turbid (Clear); Color,Urine Dark Yellow (Yellow); Glucose,Urine (UA) Normal (Normal); Ketones,Urine Negative (Negative); Leukocyte Esterase,Urine Moderate (Negative); Nitrite,Urine Negative (Negative); PH,Urine 6.5 pH Units (5.0-8.0); Protein,Urine Trace mg/dL (Neg-Trace); Specific Gravity,Urine 1.025 (1.010-1.025); Urobilinogen,Urine Normal (Normal)
[2017-01-19 12:30] LABS: Bacteria,Urine Few per hpf (None-Few); Squamous Epithelial Cell,Urine Many per lpf (None-Few); WBC,Urine TNTC per hpf (0-3)
[2017-01-19 12:41] LABS: Mucus,Urine Many (Few)
[2017-01-19] MEDS ORDERED: Ringers Solution, Lactated 1,000 ML ONE (14:26)
[2017-01-19] MEDS ORDERED: Ringers Solution, Lactated 1,000 ML IVC SCH ×2 (14:30→16:15)
[2017-01-19 14:51] LABS: Hematocrit 35.3 % (35.3-44.9); Hemoglobin 12.2 g/dL (11.5-15.4); Mean Corpuscular HGB Conc 34.6 g/dL (31.6-35.5); Mean Corpuscular Hemoglobin 32.4 pg (28.0-33.3); Mean Corpuscular Volume 93.9 fL (83.0-100.0); Mean Platelet Volume 10.5 fL (9.4-12.4); Platelet Count 199 K/mcL (140-400); Red Blood Count 3.76 M/mcL (3.82-4.97); Red Cell Distribution Width 14.3 % (11.5-14.5)
[2017-01-19] MEDS ORDERED: *HR* OxyCODONE/APAP 5/325 TABLET PO ONE (16:02)
== END 2017-01-20 11:14 | disposition home or self-care (01) ==
LOC: 1NENULAB
PROVIDERS: ADMIT Student in an Organized Health Care Education/Training Program; ATTEND Student in an Organized Health Care Education/Training Program

== ENCOUNTER → 2017-01-23 20:00 | Observation (INO) ==
[2017-01-23 16:37] VITALS: BP 120/74
[2017-01-23 18:02] LABS: Basophils % 0.3 %; Eosinophils % 0.4 %; Hematocrit 35.7 % (35.3-44.9); Hemoglobin 12.1 g/dL (11.5-15.4); Immature Granulocytes % 0.8 % (0-4); Lymphocytes # 1.2 K/mcL (0.6-4.6); Lymphocytes % 10.8 %; Mean Corpuscular HGB Conc 33.9 g/dL (31.6-35.5); Mean Corpuscular Hemoglobin 32.1 pg (28.0-33.3); Mean Corpuscular Volume 94.7 fL (83.0-100.0); Mean Platelet Volume 10.6 fL (9.4-12.4); Monocytes # 0.6 K/mcL (0.0-1.3); Monocytes % 5.1 %; Neutrophils # 9.4 K/mcL (1.6-8.9); Platelet Count 209 K/mcL (140-400); Red Blood Count 3.77 M/mcL (3.82-4.97); Red Cell Distribution Width 14.3 % (11.5-14.5); Segmented Neutrophils % 82.6 %
[2017-01-23 18:06] LABS: Bilirubin,Urine Negative (Negative); Blood,Urine Large (Negative); Clarity,Urine Cloudy (Clear); Color,Urine Dark Yellow (Yellow); Glucose,Urine (UA) Normal (Normal); Ketones,Urine 40 mg/dL (Negative); Leukocyte Esterase,Urine Trace (Negative); Nitrite,Urine Negative (Negative); PH,Urine 6.5 pH Units (5.0-8.0); Protein,Urine 30 mg/dL (Neg-Trace); Specific Gravity,Urine > 1.030 (1.010-1.025); Urobilinogen,Urine Normal (Normal)
[2017-01-23 18:09] LABS: Amphetamine Screen,Urine Negative ng/mL (Cutoff=1000); Barbiturate Screen,Urine Negative ng/mL (Cutoff=200); Benzodiazepines Screen,Urine Negative ng/mL (Cutoff=200); Cannabinoid Screen,Urine Negative ng/mL (Cutoff = 50); Cocaine Screen,Urine Negative ng/mL (Cutoff= 300); Opiate Screen,Urine Negative ng/mL (Cutoff=300); Phencyclidine Screen,Urine Negative ng/mL (Cutoff=25)
[2017-01-23 18:14] LABS: BUN/Creatinine Ratio 8 (6-26); Blood Urea Nitrogen 5 mg/dL (7-20); Calcium 9.4 mg/dL (8.6-10.8); Carbon Dioxide 21 mEq/L (19-29); Chloride 106 mEq/L (98-109); Glucose 80 mg/dL (70-99); Osmolality,Calculated 280 (280-300); Potassium 3.5 mEq/L (3.5-4.5); Sodium 137 mEq/L (136-145); eGFR For African Americans > 60 (> 60); eGFR For Non-African Americans > 60 (> 60)
[2017-01-23 18:18] LABS: Mucus,Urine Moderate (Few); Squamous Epithelial Cell,Urine Moderate per lpf (None-Few)
[2017-01-23 18:19] LABS: Hyaline Casts,Urine Few per lpf (None-Few); Renal Epithelial Cells,Urine Few per hpf (None-Few)
[2017-01-23 18:20] LABS: RBC,Urine 15-30 per hpf (0-3); WBC,Urine 0-3 per hpf (0-3)
[2017-01-23 18:21] LABS: Bacteria,Urine Moderate per hpf (None-Few)
--- NOTE | 2017-01-23 18:26 | OB/GYN Progress Note ---
Date of Encounter: 01/23/17 Time of Encounter: 18:24 - Assessment and Plan (1) 32 weeks gestation of Current Visit: Yes Status: Acute Continuous monitoring. (2) Dehydration during Current Visit: Yes Status: Acute IV fluid bolus. (3) Nausea and vomiting during Current Visit: Yes Status: Acute IV fluid bolus given. IV Zofran Subjective - Subjective Principal diagnosis: Nausea/Vomiting Interval history: Margarita is a 21 year-old G1 at 32w2d who arrives with complaint of nausea and vomiting for the past 2 days. States she has not been able to keep down food or water during this time. Also complains of a sore throat and abdominal tenderness during this time. Reports positive movement, denies vaginal bleeding and fluid leakage. Pt reports she was seen several days ago and told she may have a kidney stone. Was prescribed Percocet for pain management. Patient states she has only taken 2 since that time. Patient is currently nauseated but has not vomited since she has been in L&D. Antepartum ROS: movement normal, no loss of fluid, no vaginal bleeding, no contractions Objective - Vital Signs Vital Signs: Vital Signs Temp Pulse Resp BP 01/23/17 16:27 97.4 F L 104 18 120/74 - Exam FHR: category 1 FHR comments: FHR 140 bpm, moderate variability, +15x15 accels, no decels. Auscultation: bilateral: normal Abdomen: Present: normal appearance, soft, gravid, tenderness Uterus: Present: normal Cervical dilation: Deferred vaginal exam Comments: High frequency low amplitude uterine activity noted. Patient denies contractions. - Labs Labs: Abnormal lab results WBC 11.4 K/mcL (4.3-11.1) H 01/23/17 17:25 RBC 3.77 M/mcL (3.82-4.97) L 01/23/17 17:25 Neutrophils # 9.4 K/mcL (1.6-8.9) H 01/23/17 17:25 BUN 5 mg/dL (7-20) L 01/23/17 17:25 Urine Clarity Cloudy (Clear) A 01/23/17 17:35 Ur Specific [place] > 1.030 (1.010-1.025) H 01/23/17 17:35 Urine Protein 30 mg/dL (Neg-Trace) H 01/23/17 17:35 Urine Ketones 40 mg/dL (Negative) H 01/23/17 17:35 Urine Blood Large (Negative) H 01/23/17 17:35 Ur Leukocyte Esterase Trace (Negative) H 01/23/17 17:35 Urine Microscopic RBC 15-30 per hpf (0-3) H 01/23/17 17:35 Ur Squamous Epith Cells Moderate per lpf (None-Few) H 01/23/17 17:35 Urine Bacteria Moderate per hpf (None-Few) H 01/23/17 17:35 Urine Mucus Moderate (Few) H 01/23/17 17:35 Ur Culture Indicated? YES (NO) A 01/23/17 17:35
--- NOTE | 2017-01-23 19:35 | Discharge Summary ---
Date of Encounter: 01/23/17 Time of Encounter: 19:35 - Discharge Diagnosis (1) 32 weeks gestation of Priority: Secondary Status: Acute Comments: monitoring reassuring. Patient feeling better after IV hydration and Zofran. (2) Dehydration during Priority: Secondary Status: Acute Comments: IV fluid bolus completed. (3) Nausea and vomiting during Priority: Primary Status: Acute Comments: Patient feeling much better after IV fluid and Zofran. Patient now feeling hungry and requested a light snack. - Discharge Medications Home Medications: Multivitamin [Multivitamins] 1 each PO DAILY 09/18/16 [History] Ondansetron ODT [Zofran ODT] 4 mg SL Q4HR PRN #30 tab.rapdis 01/17/17 [Rx] Promethazine [Phenergan] 12.5 mg VG Q6HR PRN #30 supp.rect 01/17/17 [Rx] Oxycodone HCl/Acetaminophen [Percocet 5-325 mg Tablet] 1 each PO Q6HR PRN #20 tablet 01/19/17 [Rx] Allergies/Adverse Reactions: 3 Allergy/AdvReac Type Severity Reaction Status Date / Time No Known Allergies Allergy Verified 12/18/16 13:09 Data Procedures and tests throughout hospitalization: Laboratory Tests 01/23/17 01/23/17 01/23/17 17:25 17:25 17:35 WBC 11.4 H RBC 3.77 L Hgb 12.1 Hct 35.7 MCV 94.7 MCH 32.1 MCHC 33.9 RDW 14.3 Plt Count 209 MPV 10.6 Immature Gran % 0.8 Seg Neutrophils % 82.6 Lymphocytes % 10.8 Monocytes % 5.1 Eosinophils % 0.4 Basophils % 0.3 Neutrophils # 9.4 H Lymphocytes # 1.2 Monocytes # 0.6 Eosinophils # 0.0 Basophils # 0.0 Sodium 137 Potassium 3.5 Chloride 106 Carbon Dioxide 21 BUN 5 L Creatinine 0.61 Est GFR ( Amer) > 60 Est GFR (Non-Af Amer) > 60 BUN/Creatinine Ratio 8 Glucose 80 Calculated Osmolality 280 Calcium 9.4 Urine Color Urine Clarity Urine pH Ur Specific [place] Urine Protein Urine Glucose (UA) Urine Ketones Urine Blood Urine Nitrite Urine Bilirubin Urine Urobilinogen Ur Leukocyte Esterase Urine Microscopic RBC Urine Microscopic WBC Ur Squamous Epith Cells Ur Renal Epithelial Cell Urine Bacteria Hyaline Casts Urine Mucus Ur Culture Indicated? Urine Opiates Screen Negative Ur Barbiturates Screen Negative Ur Phencyclidine Scrn Negative Ur Amphetamines Screen Negative U Benzodiazepines Scrn Negative Urine Cocaine Screen Negative U Marijuana (THC) Screen Negative 01/23/17 17:35 WBC RBC Hgb Hct MCV MCH MCHC RDW Plt Count MPV Immature Gran % Seg Neutrophils % Lymphocytes % Monocytes % Eosinophils % Basophils % Neutrophils # Lymphocytes # Monocytes # Eosinophils # Basophils # Sodium Potassium Chloride Carbon Dioxide BUN Creatinine Est GFR ( Amer) Est GFR (Non-Af Amer) BUN/Creatinine Ratio Glucose Calculated Osmolality Calcium Urine Color Dark Yellow Urine Clarity Cloudy A Urine pH 6.5 Ur Specific [place] > 1.030 H Urine Protein 30 H Urine Glucose (UA) Normal Urine Ketones 40 H Urine Blood Large H Urine Nitrite Negative Urine Bilirubin Negative Urine Urobilinogen Normal Ur Leukocyte Esterase Trace H Urine Microscopic RBC 15-30 H Urine Microscopic WBC 0-3 Ur Squamous Epith Cells Moderate H Ur Renal Epithelial Cell Few Urine Bacteria Moderate H Hyaline Casts Few Urine Mucus Moderate H Ur Culture Indicated? YES A Urine Opiates Screen Ur Barbiturates Screen Ur Phencyclidine Scrn Ur Amphetamines Screen U Benzodiazepines Scrn Urine Cocaine Screen U Marijuana (THC) Screen Labs on day of discharge: Labs from last 24 hours 01/23/17 01/23/17 01/23/17 17:35 17:35 17:25 WBC RBC Hgb Hct MCV MCH MCHC RDW Plt Count MPV Immature Gran % Seg Neutrophils % Lymphocytes % Monocytes % Eosinophils % Basophils % Neutrophils # Lymphocytes # Monocytes # Eosinophils # Basophils # Sodium 137 Potassium 3.5 Chloride 106 Carbon Dioxide 21 BUN 5 L Creatinine 0.61 Est GFR ( Amer) > 60 Est GFR (Non-Af Amer) > 60 BUN/Creatinine Ratio 8 Glucose 80 Calculated Osmolality 280 Calcium 9.4 Urine Color Dark Yellow Urine Clarity Cloudy A Urine pH 6.5 Ur Specific [place] > 1.030 H Urine Protein 30 H Urine Glucose (UA) Normal Urine Ketones 40 H Urine Blood Large H Urine Nitrite Negative Urine Bilirubin Negative Urine Urobilinogen Normal Ur Leukocyte Esterase Trace H Urine Microscopic RBC 15-30 H Urine Microscopic WBC 0-3 Ur Squamous Epith Cells Moderate H Ur Renal Epithelial Cell Few Urine Bacteria Moderate H Hyaline Casts Few Urine Mucus Moderate H Ur Culture Indicated? YES A Urine Opiates Screen Negative Ur Barbiturates Screen Negative Ur Phencyclidine Scrn Negative Ur Amphetamines Screen Negative U Benzodiazepines Scrn Negative Urine Cocaine Screen Negative U Marijuana (THC) Screen Negative 01/23/17 17:25 WBC 11.4 H RBC 3.77 L Hgb 12.1 Hct 35.7 MCV 94.7 MCH 32.1 MCHC 33.9 RDW 14.3 Plt Count 209 MPV 10.6 Immature Gran % 0.8 Seg Neutrophils % 82.6 Lymphocytes % 10.8 Monocytes % 5.1 Eosinophils % 0.4 Basophils % 0.3 Neutrophils # 9.4 H Lymphocytes # 1.2 Monocytes # 0.6 Eosinophils # 0.0 Basophils # 0.0 Sodium Potassium Chloride Carbon Dioxide BUN Creatinine Est GFR ( Amer) Est GFR (Non-Af Amer) BUN/Creatinine Ratio Glucose Calculated Osmolality Calcium Urine Color Urine Clarity Urine pH Ur Specific [place] Urine Protein Urine Glucose (UA) Urine Ketones Urine Blood Urine Nitrite Urine Bilirubin Urine Urobilinogen Ur Leukocyte Esterase Urine Microscopic RBC Urine Microscopic WBC Ur Squamous Epith Cells Ur Renal Epithelial Cell Urine Bacteria Hyaline Casts Urine Mucus Ur Culture Indicated? Urine Opiates Screen Ur Barbiturates Screen Ur Phencyclidine Scrn Ur Amphetamines Screen U Benzodiazepines Scrn Urine Cocaine Screen U Marijuana (THC) Screen Date of admission: 01/23/17 16:00 Primary care physician: Jignesh Michaud Discharging clinician: Sue Saenz Anticipated date of discharge: 01/23/17 - Patient Status Disposition: Home, Self-Care Condition: Good Functional capacity at discharge: independent ambulation - Discharge Instructions Follow Up With: Jignesh Barlow MD [Primary Care Provider] - - Diet and Activity Activity: resume usual activities as tolerated Diet: regular diet Hospital Course [facility] Reason for admission: other Discharge diagnosis: other Hospital course: Pt given IV fluid bolus and IV Zofran. She states she is feeling better and would like to go home. Requesting a light diet at this time. Time Attestation: Total time spent providing and/or coordinating discharge services: Time Spent: Less than 30 minutes Exam - Constitutional Vitals: Temp Pulse Resp BP 97.4 F L 104 18 120/74 01/23/17 16:27 01/23/17 16:27 01/23/17 16:27 01/23/17 16:27 General appearance IM: A&O X 3, pleasant, no acute distress - Respiratory Respiratory exam: Present: CTAB. Absent: accessory muscle use - Cardiovascular Cardiovascular exam IM: Present: RRR, +S1, +S2 - GI/Abdominal GI/Abdominal exam IM: normal bowel sounds, tenderness - Rectal Rectal exam: deferred - Extremities Exam Extremities exam IM: Present: full ROM, normal capillary refill, normal inspection - Neurological Exam Neurological exam: alert, oriented X3, reflexes normal, strengths equal and symetr throughout - Other Additional findings: FHR 145 bpm, moderate variability. No contractions noted on monitor. - VTE Reasons for not Prescribing Prophylaxis: Treatment not Indicated - Low risk for VTE
[~2017-01-23 20:00] MED LIST changes: +Ondansetron 4 MG/2 ML VIAL IVP PRN; -Ringers Solution, Lactated 1,000 ML IVC ONE; +Ringers Solution, Lactated 1,000 ML IVC SCH
== END | disposition home or self-care (01) ==
LOC: 1NENULAB
PROVIDERS: ADMIT Obstetrics & Gynecology; ATTEND Obstetrics & Gynecology

== ENCOUNTER 2017-03-06 23:46 | Observation (INO) ==
[2017-03-07] VITALS: BP 122/75
[2017-03-07] MEDS ORDERED: Ringers Solution, Lactated 1,000 ML ONE (00:28)
[2017-03-07 00:55] LABS: Bilirubin,Urine Negative (Negative); Blood,Urine Negative (Negative); Clarity,Urine Cloudy (Clear); Color,Urine Yellow (Yellow); Glucose,Urine (UA) Normal (Normal); Ketones,Urine Negative (Negative); Leukocyte Esterase,Urine Trace (Negative); Nitrite,Urine Negative (Negative); Protein,Urine Trace mg/dL (Neg-Trace); Specific Gravity,Urine 1.029 (1.010-1.025); Urobilinogen,Urine Normal (Normal)
[2017-03-07 00:56] LABS: RBC,Urine 0-3 per hpf (0-3); Squamous Epithelial Cell,Urine Many per lpf (None-Few)
[2017-03-07 00:59] LABS: Amphetamine Screen,Urine Negative ng/mL (Cutoff=1000); Barbiturate Screen,Urine Negative ng/mL (Cutoff=200); Benzodiazepines Screen,Urine Negative ng/mL (Cutoff=200); Cannabinoid Screen,Urine Negative ng/mL (Cutoff = 50); Cocaine Screen,Urine Negative ng/mL (Cutoff= 300); Opiate Screen,Urine Negative ng/mL (Cutoff=300); Phencyclidine Screen,Urine Negative ng/mL (Cutoff=25)
[2017-03-07 01:10] LABS: Bacteria,Urine Few per hpf (None-Few); Mucus,Urine Moderate (Few)
--- NOTE | 2017-03-07 04:16 | Discharge Summary ---
Date of Encounter: 03/07/17 Time of Encounter: 04:17 - Discharge Diagnosis (1) 38 weeks gestation of Priority: Primary Status: Acute Comments: admitted for labor evaluation No cervical change false labor discharge home (2) NST (non-stress test) reactive on surveillance Priority: Secondary Status: Acute Comments: FHR baseline 135 bpm moderate variability +15x15 accels no decels noted. CAt. 1 tracing. - Discharge Medications Home Medications: Multivitamin [Multivitamins] 1 each PO DAILY 09/18/16 [History] Ondansetron ODT [Zofran ODT] 4 mg SL Q4HR PRN #30 tab.rapdis 01/17/17 [Rx] Allergies/Adverse Reactions: 3 Allergy/AdvReac Type Severity Reaction Status Date / Time No Known Allergies Allergy Verified 12/18/16 13:09 Data Procedures and tests throughout hospitalization: Laboratory Tests 03/07/17 03/07/17 00:09 00:10 Urine Color Yellow Urine Clarity Cloudy A Urine pH 6.0 Ur Specific [place] 1.029 H Urine Protein Trace Urine Glucose (UA) Normal Urine Ketones Negative Urine Blood Negative Urine Nitrite Negative Urine Bilirubin Negative Urine Urobilinogen Normal Ur Leukocyte Esterase Trace H Urine Microscopic RBC 0-3 Urine Microscopic WBC 5-15 H Ur Squamous Epith Cells Many H Urine Bacteria Few Urine Mucus Moderate H Ur Culture Indicated? NO Urine Opiates Screen Negative Ur Barbiturates Screen Negative Ur Phencyclidine Scrn Negative Ur Amphetamines Screen Negative U Benzodiazepines Scrn Negative Urine Cocaine Screen Negative U Marijuana (THC) Screen Negative Labs on day of discharge: Labs from last 24 hours 03/07/17 03/07/17 00:10 00:09 Urine Color Yellow Urine Clarity Cloudy A Urine pH 6.0 Ur Specific [place] 1.029 H Urine Protein Trace Urine Glucose (UA) Normal Urine Ketones Negative Urine Blood Negative Urine Nitrite Negative Urine Bilirubin Negative Urine Urobilinogen Normal Ur Leukocyte Esterase Trace H Urine Microscopic RBC 0-3 Urine Microscopic WBC 5-15 H Ur Squamous Epith Cells Many H Urine Bacteria Few Urine Mucus Moderate H Ur Culture Indicated? NO Urine Opiates Screen Negative Ur Barbiturates Screen Negative Ur Phencyclidine Scrn Negative Ur Amphetamines Screen Negative U Benzodiazepines Scrn Negative Urine Cocaine Screen Negative U Marijuana (THC) Screen Negative Date of admission: 03/06/17 23:46 Discharging clinician: Sue Saenz Anticipated date of discharge: 03/07/17 - Patient Status Disposition: Home, Self-Care Condition: Good - Discharge Instructions Additional Instructions: LABOR AND DELIVERY DISCHARGE INSTRUCTIONS Signs and Symptoms to be Reported to your Doctor Immediately: * Sudden gush, continuous or intermittent lead of fluid from vagina (note the time of gush and color of fluid) * Onset of bright red vaginal bleeding with or without pain (if you had a vaginal exam during this visit you may notice some dark red spotting. This is normal.) * Contractions that are 5 minutes apart (from the beginning of one contraction to the beginning of the next) and last 45-60 seonds; contractions that you can no longer walk, talk or laugh through. * A change in the baby's activity. This could be an increase or decrease in activity. * Severe headache which does not go away with tylenol. * Sudden swelling in the face, hands, arms and/or legs. * Upper abdominal pain - sometimes associated with heartburn or nausea and is not relieved by Maalox, Mylanta or Tums. * Kick Counts __ One hour after a meal, lay down on one side in a quiet place. Count the number of time the baby moves during an hour. 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 CAt. 1 tracing SVE per RN 1.5/80% - VTE Reasons for not Prescribing Prophylaxis: Treatment not Indicated - Low risk for VTE
== END 2017-03-07 01:24 | disposition home or self-care (01) ==
LOC: 1NENULAB
PROVIDERS: ADMIT Advanced Practice Midwife; ATTEND Advanced Practice Midwife

== ENCOUNTER → 2017-03-08 03:44 | Observation (INO) ==
--- NOTE | 2017-03-08 00:11 | OB/GYN Progress Note ---
Date of Encounter: 03/08/17 Time of Encounter: 00:48 - Assessment and Plan (1) Irregular uterine contractions Current Visit: Yes Status: Acute Plan: - IV hydration with 125ml/hr LR - reactive NST - serial cervical exam, without change - Patient given instructions for labor, patient safe for discharge - sent home with hydralzine 25mg for sleep (2) NST (non-stress test) reactive on surveillance Current Visit: No Status: Acute FHR baseline = 150 (3) 38 weeks gestation of Current Visit: No Status: Acute Subjective - Subjective Principal diagnosis: contractions and vaginal bleeding Interval history: Patient is a 21 y/o female at 38+ 4 weeks presented to L&D complaining of vaginal bleeding and contractions. Patient loss her mucus plug today and has had red discharge. Patient had some contractions around 6pm and 8pm. + movement. No loss of fluids. Denies N/V, changes in vision, dysuria. Antepartum ROS: vaginal bleeding, movement normal, contractions Objective - Vital Signs Vital Signs: Intake and Output 03/07/17 03/07/17 03/08/17 15:59 23:59 07:59 Other: Weight 88.2 kg - Exam FHR: category 1 FHR comments: FHR baseline = 150 Auscultation: bilateral: normal Abdomen: Present: normal appearance, soft Cervical dilation: 1-2cm Cervix effacement: 80 station: high
[2017-03-08 00:38] LABS: Bilirubin,Urine Negative (Negative); Blood,Urine Small (Negative); Clarity,Urine Cloudy (Clear); Color,Urine Yellow (Yellow); Glucose,Urine (UA) Normal (Normal); Ketones,Urine Negative (Negative); Leukocyte Esterase,Urine Trace (Negative); Nitrite,Urine Negative (Negative); PH,Urine 6.5 pH Units (5.0-8.0); Protein,Urine Negative (Neg-Trace); Specific Gravity,Urine 1.018 (1.010-1.025); Urobilinogen,Urine Normal (Normal)
[2017-03-08 00:39] LABS: Amphetamine Screen,Urine Negative ng/mL (Cutoff=1000); Barbiturate Screen,Urine Negative ng/mL (Cutoff=200); Benzodiazepines Screen,Urine Negative ng/mL (Cutoff=200); Cannabinoid Screen,Urine Negative ng/mL (Cutoff = 50); Cocaine Screen,Urine Negative ng/mL (Cutoff= 300); Opiate Screen,Urine Negative ng/mL (Cutoff=300); Phencyclidine Screen,Urine Negative ng/mL (Cutoff=25)
[2017-03-08 00:40] LABS: Hyaline Casts,Urine None Seen per lpf (None-Few); Squamous Epithelial Cell,Urine Many per lpf (None-Few)
[2017-03-08 00:49] LABS: Bacteria,Urine None Seen per hpf (None-Few)
[~2017-03-08 03:44] MED LIST changes: +*HR* Nalbuphine 20 MG/ML AMPUL IVP PRN; +Acetaminophen 325 MG TABLET PO ONE; -Ondansetron 4 MG/2 ML VIAL IVP PRN
== END | disposition home or self-care (01) ==
LOC: 1NENULAB
PROVIDERS: ADMIT Advanced Practice Midwife; ATTEND Advanced Practice Midwife

== ENCOUNTER 2017-03-14 12:56 | Inpatient (IN) ==
--- NOTE | 2017-03-14 12:01 | OB/GYN History & Physical ---
Date of Encounter: 03/14/17 Time of Encounter: 12:01 Assessment and Plan (1) 39 weeks gestation of Current visit: Yes Status: Acute Labor evaluation (2) Uterine contractions Current visit: Yes Status: Acute Admit to labor and delivery Will induce labor due to tracing non reactive Pitocin per policy will insert cervical delaney nubain and epidural as desires. Anticipate . History of Present Illness HPI: Ms. Boucher is a 21 year old female presenting to labor and delivery for concern for active labor. Patient is 39 weeks 3 days. Started having irregular contractions last evening that became regular and intense today during her routine appointment. She was seen at OB clinic and sent over for labor rule out. Patient was at 3cm in the office and having contractions. Patient denies any fluid leakage or bleeding. Leslie any fevers, chest pain, or sob. Patient is rubella immune. HIV and treponema negative. Blood type o+. GBS negattive No complications throughout this . States she is taking vitamins , prilosec and antinausea medication. Past Med Surg Social Fam HX - Past Medical History Medical history: no medical history, kidney stones Psychiatric history: no psych history - Past Surgical History Surgical History: other - Social History Smoking Status: Never smoker Smokeless Tobacco Status: No Alcohol use: none Drug use: none - Family History Mother Living Status: Still Living Hx Family Cardiac Disorders: No Hx Family Respiratory Disorders: No Hx Family Cancer: No Hx Family GI Disorders: No Hx Family Endocrine Disorder: No Hx Family Neuromuscular Disorders: No Hx Family Neurologic Disorders: No Hx Family HEENT Disorders: No Hx Family Autoimmune Disorders: No Father Adopted: No Living Status: Still Living Hx Family Cardiac Disorders: No Hx Family Respiratory Disorders: No Hx Family Cancer: No Hx Family GI Disorders: No Hx Family Endocrine Disorder: No Hx Family Neuromuscular Disorders: No Hx Family Neurologic Disorders: No Hx Family HEENT Disorders: No Hx Family Autoimmune Disorders: No Obstetrical History - Pregnancies : 1 Para: 0 Term: 0 : 0 Ab's: 0 Livin Medications and Allergies Multivitamin [Multivitamins] 1 each PO DAILY 09/18/16 [History] Ondansetron ODT [Zofran ODT] 4 mg SL Q4HR PRN #30 tab.rapdis 01/17/17 [Rx] hydrOXYzine pamoate [HydrOXYzine Pamoate] 25 mg PO HS PRN #5 capsule 03/08/17 [ Rx] 3 Allergy/AdvReac Type Severity Reaction Status Date / Time No Known Allergies Allergy Verified 12/18/16 13:09 Review of System OB All systems PM: reviewed and no additional remarkable complaints except as stated Exam - Constitutional Constitutional: well developed, well nourished, no acute distress, average body habitus - HEENT HEENT: Normocephaly, Mucus Membranes Moist - Neck Neck exam: normal inspection - Lungs Respiratory exam: CTAB - Cardiovascular Cardiovascular exam: RRR - Abdomen Abdomen: Present: bowel sounds normal, gravid, non tender - Extremities Extremities exam: pedal edema Deep Tendon Reflex Grade: 2+ Normal - Cervix Dilation: 3 - Uterus Uterus exam: Present: enlarged (gravid), normal contour Results Result Diagrams: 03/14/17 12:05 All other labs normal. - VTE Reasons for not Prescribing Prophylaxis: Treatment not Indicated - Low risk for VTE
[~2017-03-14 12:56] MED LIST changes: -*HR* Nalbuphine 20 MG/ML AMPUL IVP PRN; -Acetaminophen 325 MG TABLET PO ONE; +Famotidine 20 MG/2 ML VIAL IVP PRN; +Naloxone 0.4 MG/ML INJ IVP PRN; +Ondansetron 4 MG/2 ML VIAL IVP PRN; -Ringers Solution, Lactated 1,000 ML IVC SCH
[2017-03-14 12:57] LABS: Basophils % 0.3 %; Eosinophils # 0.1 K/mcL (0.0-0.6); Eosinophils % 0.9 %; Hematocrit 36.8 % (35.3-44.9); Hemoglobin 12.5 g/dL (11.5-15.4); Immature Granulocytes % 0.9 % (0-4); Lymphocytes # 1.3 K/mcL (0.6-4.6); Lymphocytes % 14.5 %; Mean Corpuscular Hemoglobin 32.2 pg (28.0-33.3); Mean Corpuscular Volume 94.8 fL (83.0-100.0); Monocytes # 0.6 K/mcL (0.0-1.3); Monocytes % 7.2 %; Neutrophils # 6.7 K/mcL (1.6-8.9); Platelet Count 189 K/mcL (140-400); Red Blood Count 3.88 M/mcL (3.82-4.97); Red Cell Distribution Width 13.7 % (11.5-14.5); Segmented Neutrophils % 76.2 %
[2017-03-14] MEDS: Ringers Solution, Lactated 1,000 ML IVC SCH (13:10)
[2017-03-14] MEDS ORDERED: Oxytocin 20 units/ LR 1000 mL 20 UNIT/1,000 ML BAG IVC SCH (13:45)
[2017-03-14 14:02] LABS: Amphetamine Screen,Urine Negative ng/mL (Cutoff=1000); Barbiturate Screen,Urine Negative ng/mL (Cutoff=200); Benzodiazepines Screen,Urine Negative ng/mL (Cutoff=200); Cannabinoid Screen,Urine Negative ng/mL (Cutoff = 50); Cocaine Screen,Urine Negative ng/mL (Cutoff= 300); Opiate Screen,Urine Negative ng/mL (Cutoff=300); Phencyclidine Screen,Urine Negative ng/mL (Cutoff=25)
[2017-03-14] MEDS ORDERED: Ringers Solution, Lactated 500 ML IVC ONE (16:15)
[2017-03-14] MEDS ORDERED: EPHEDrine 50 MG/ML VIAL IVP PRN (16:15)
[2017-03-14] MEDS ORDERED: Epidural Premix (fent/bupiv) 110 ML EP SCH (16:15)
--- NOTE | 2017-03-14 16:15 | Anesthesia Evaluation PreOp ---
Date of Encounter: 03/14/17 Time of Encounter: 16:13 - Past History Planned Operation: ANUSHA Cardiac History: Denies any Significant Hx Pulmonary History: Asthma SCANNING MANAGER History: Denies Any Significant HX Other Medical History: Denies Any Significant HX, Other (Anemia) Anesthesia History: No Prior Anesthetic Complications, Past Anesthesia (T&A 2012 ) : Yes (39.3) Alcohol Use: none Drug use: none Medications and Allergies Multivitamin [Multivitamins] 1 each PO DAILY 09/18/16 [History] Ondansetron ODT [Zofran ODT] 4 mg SL Q4HR PRN #30 tab.rapdis 01/17/17 [Rx] hydrOXYzine pamoate [HydrOXYzine Pamoate] 25 mg PO HS PRN #5 capsule 03/08/17 [ Rx] 3 Allergy/AdvReac Type Severity Reaction Status Date / Time No Known Allergies Allergy Verified 12/18/16 13:09 - Meds/Allergy Pre-op Review Medications Reviewed: Yes Allergies Reviewed: Yes Beta Blockers on Current Med List: No Anesthesia Results - Labs 03/14/17 12:05 Anesthesia Exam Height: 1.7m Weight: 87.8kg NPO (# of Hours): 8 Pain Scale: 2 Pain Scale Used: Numeric (1 - 10) - HEENT Pupil (Motor): Pupils equal Mallampati: II Teeth: Normal Oral Opening: Greater than 3 - SCANNING MANAGER LOC: Oriented SCANNING MANAGER Motor: Normal RUE, Normal LUE, Normal RLE, Normal LLE, Normal Face SCANNING MANAGER Sensory: Normal: RUE, LUE, RLE, LLE, Face - Cardiac Rhythm: Regular Murmur: None JVD: No Carotid Bruit: No - Pulmonary Breath Sounds: bilateral Clear Respiratory Effort: Symmetrical Anesthesia Assess/Plan ASA Score: 2 Modified Hallie Scale for Level of Consciousness: Cooperative, oriented, and tranquil Anesthetic Plan: General (plan b), Regional (plan a) Autologous Blood: Yes Monitoring Plan: Standard Monitors
[2017-03-14] MEDS: *HR* Nalbuphine 20 MG/ML AMPUL IVP PRN ×2 (16:49→18:57)
--- NOTE | 2017-03-14 16:49 | OB Labor Progress Note ---
Date of Encounter: 03/14/17 Time of Encounter: 16:47 Labor Progress Note - Subjective Subjective: Pt reports feeling contractions. Mild at this time. Pt verbalizes more distress regarding labor and procedures associated with labor. - Cervix Cervix: 3/75/-2 Soft Posterior - Heart Tones Heart Tones: Baseline 150 Mild to Moderate variability Accelerations present Occasional variable decelerations - [place]: 2-3 minutes Palpate mild - Interventions Interventions: Catalan bulb placed and inflated with 60ml. - Plan Plan: Assessment 21 yo IUP at at 39 weeks + 3 days GA Early labor GBS - Fetus category II Plan Nubain for pain prn Expectant management Anticipate Dr. Barrett aware of POC and agrees
[2017-03-14] MEDS ORDERED: Epidural Premix (fent/bupiv) 110 ML EP ONE (22:17)
--- NOTE | 2017-03-14 22:19 | OB Labor Progress Note ---
Date of Encounter: 03/14/17 Time of Encounter: 23:20 Labor Progress Note - Subjective Subjective: Pt reports no pain with epidural. States OK for ROM now. - Cervix Cervix: 6/75/-1 - Heart Tones Heart Tones: Baseline - [place]: q3-4 minutes - Interventions Interventions: AROM - thick meconium IUPC placed - Plan Plan: 21 yo IUP at 39+3 weeks GA GBS - Fetus Category II Plan: Expectant management Increase pitocin per policy to adequate labor Frequent repositioning with use of peanut ball Anticipate
--- NOTE | 2017-03-14 22:48 | Anesthesia Procedures ---
Date of Encounter: 03/14/17 Time of Encounter: 22:47 Procedures: Anesthesia - Epidural/Spinal Patient ID/Chart reviewed: Yes Patient examined: Yes OB Eval: Gestational age: 39.3 OB Eval: : 1 OB Eval: Hx Para: 0 OB Eval: Dilated at (cm): 3 OB Eval: Contractions: Non-stressed pattern Consent Obtained: Yes Supplemental Oxygen: None/Room Air Site Prep: Aseptic Technique, Sterile prep and drape, Povidone-Iodine 1% Patient position: upright Local Anesthetic: Lidocaine 1% Amount of Local Anesthetic used: 3 Touhy Needle Gauge: 18 Touhy Needle Depth (cm): 7 Catheter Depth at Skin (cm): 20 Test Dose (1.5% Lido + Epi): Volume given (mls): 5 Test Dose Result: Negative Loading Dose: Other: 10mls of epidural pharm bag premix solution Loading Dose Administered: Thru Catheter Infusion Med: 0.125% Bupivacaine w/ 2 mcg/ml Fentanyl Infusion Rate (mls/hr): 14 ([id number] pcea) Catheter Secured in Place: Tegaderm, Tape Interspace Used: L4-L5 Loss of Resistance (CHRISTA): Yes Blood: No CSF: No Paresthesia: No Procedure: pt tolerated procedure well. no compications. vss. fhr stable. see qs for complete vital signs.
[2017-03-15] MEDS ORDERED: Acetaminophen 325 MG TABLET PO PRN ×4 (00:05→13:16)
[2017-03-15] MEDS ORDERED: Epidural Premix (fent/bupiv) 110 ML EP ONE (05:05)
[2017-03-15] MEDS: Ringers Solution, Lactated 1,000 ML IVC SCH (05:55)
--- NOTE | 2017-03-15 06:46 | OB Labor Progress Note ---
Date of Encounter: 03/15/17 Time of Encounter: 06:43 Labor Progress Note - Subjective Subjective: Pt reports good pain relief from epidural. Laying on bed with eyes closed. - Cervix Cervix: 8/90/0 - Heart Tones Heart Tones: Baseline 145 Moderate variability Good accelerations Occasional variable decelerations Fetus category I - [place]: Contractions every 2-3 minutes and adequate per IUPC - Plan Plan: 21yo IUP at 39+4 weeks GA Plan: Continue expectant management Continue position changes with peanut ball Anticipate
[2017-03-15] MEDS ORDERED: miSOPROStol 100 MCG TABLET PO ONE (08:10)
[2017-03-15] MEDS ORDERED: miSOPROStol 100 MCG TABLET PO STA (10:50)
[2017-03-15] MEDS ORDERED: Ibuprofen 600 MG TABLET PO PRN (11:01)
[2017-03-15] MEDS ORDERED: Sennosides 8.6 MG TABLET PO PRN ×2 (11:01→13:16)
--- NOTE | 2017-03-15 11:06 | OB/GYN Procedure Note ---
Delivery - Delivery Date: 03/15/17 Provider: Sue Saenz (Sergio, PGY1) Intrapartum events: meconium Delivery induction: AROM, oxytocin, delaney Delivery monitor: external FHT, external uterine, internal uterine Anesthesia: epidural Estimated Blood Loss: 350 - (s) A Delivery Date: 03/15/17 Infant Delivery Time: 10:38 Presentation: vertex Position: [place] Route of delivery: Gender: Female Viability: Viable Pounds: 7 Ounces: 0 Weight Gram: 3165 kg at 1 minute: 8 at 5 mins: 9 Shoulder Dystocia: not encountered Specimens collected: cord blood Placenta: spontaneous, uterine exploration Cord: 3 umbilical vessels - Repair Episiotomy: none Laceration Description: Perineal - 1st Degree (3-0 vicryl) - Complications Delivery complications: uterine atony - Disposition Mom disposition: stable in LDR disposition: stable in LDR - Comments Comments: Called to LDR, patient pushing well. Under maternal effort patient spontaneously delivered a viable female infant over a 1st degree perineal laceration. Patient also had bilateral periurethrals that were hemastatic. No nuchal or shoulder dystocia was encountered. Meconium stained fluid was noted. Infant placed on maternal abdomen. Respiratory therapy at bedside. Cord was clamped and cut after pulsations ceased. Placenta delivered spontaneously and intact. Cord segment and cord blood collected. Some uterine atony was noted. Pitocin was started, uterine massage and PO cytotec 400mcg was given. Both Mother and are stable in LDR for 2 hour recovery.
[2017-03-15] MEDS ORDERED: Oxytocin 20 units/ LR 1000 mL 20 UNIT/1,000 ML BAG IVC SCH ×2 (11:15→13:16)
[2017-03-15] MEDS ORDERED: Ringers Solution, Lactated 1,000 ML IVC SCH (13:16)
[2017-03-15] MEDS: Ibuprofen 600 MG TABLET PO PRN (19:29)
[2017-03-16] MEDS: Ibuprofen 600 MG TABLET PO PRN ×2 (03:43→10:44)
[2017-03-16 04:45] LABS: Basophils % 0.3 %; Eosinophils # 0.1 K/mcL (0.0-0.6); Eosinophils % 1.2 %; Immature Granulocytes % 0.7 % (0-4); Lymphocytes # 1.3 K/mcL (0.6-4.6); Lymphocytes % 14.5 %; Mean Corpuscular HGB Conc 33.1 g/dL (31.6-35.5); Mean Corpuscular Hemoglobin 32.2 pg (28.0-33.3); Mean Corpuscular Volume 97.3 fL (83.0-100.0); Mean Platelet Volume 11.1 fL (9.4-12.4); Monocytes # 0.6 K/mcL (0.0-1.3); Monocytes % 6.1 %; Neutrophils # 7.1 K/mcL (1.6-8.9); Nucleated Red Blood Cells 0.2 /100 WBC (0); Platelet Count 138 K/mcL (140-400); Red Blood Count 2.98 M/mcL (3.82-4.97); Red Cell Distribution Width 13.8 % (11.5-14.5); Segmented Neutrophils % 77.2 %
[2017-03-16 04:46] LABS: Hemoglobin 9.6 g/dL (11.5-15.4)
[2017-03-16 08:16] VITALS: BP 109/73
[2017-03-16] MEDS ORDERED: Prenatal Vit/FA 1 EACH TABLET PO SCH ×2 (09:00)
--- NOTE | 2017-03-16 11:03 | Discharge Summary ---
Date of Encounter: 03/16/17 Time of Encounter: 10:59 - Discharge Diagnosis (1) Vaginal delivery Priority: Primary Status: Acute Comments: Pt reports she is generally feeling well VSS Tolerating regular diet Ambulating independently Voiding and stooling independently Ready for discharge today (2) Breast feeding status of mother Priority: Secondary Status: Acute - Discharge Medications Prescriptions: Ibuprofen [Motrin] 600 mg PO Q6HR PRN #30 tablet PRN Reason: Cramping Docusate [Colace] 100 mg PO BID #30 capsule Ferrous Sulfate 325 mg PO BID #60 tablet Home Medications: Acetaminophen [Tylenol] 650 mg PO Q6HR PRN tablet 03/16/17 [Rx] Docusate [Colace] 100 mg PO BID #30 capsule 03/16/17 [Rx] Ferrous Sulfate 325 mg PO BID #60 tablet 03/16/17 [Rx] Ibuprofen [Motrin] 600 mg PO Q6HR PRN #30 tablet 03/16/17 [Rx] Vit/FA 1 each PO DAILY tablet 03/16/17 [Rx] Allergies/Adverse Reactions: 3 Allergy/AdvReac Type Severity Reaction Status Date / Time No Known Allergies Allergy Verified 12/18/16 13:09 Data Procedures and tests throughout hospitalization: Laboratory Tests 03/14/17 03/14/17 03/16/17 12:05 13:15 04:21 WBC 8.8 9.2 RBC 3.88 2.98 L Hgb 12.5 9.6 L D Hct 36.8 29.0 L MCV 94.8 97.3 MCH 32.2 32.2 MCHC 34.0 33.1 RDW 13.7 13.8 Plt Count 189 138 L MPV 11.0 11.1 Immature Gran % 0.9 0.7 Seg Neutrophils % 76.2 77.2 Lymphocytes % 14.5 14.5 Monocytes % 7.2 6.1 Eosinophils % 0.9 1.2 Basophils % 0.3 0.3 Neutrophils # 6.7 7.1 Lymphocytes # 1.3 1.3 Monocytes # 0.6 0.6 Eosinophils # 0.1 0.1 Basophils # 0.0 0.0 Nucleated RBCs/100 WBC 0.2 H Urine Opiates Screen Negative Ur Barbiturates Screen Negative Ur Phencyclidine Scrn Negative Ur Amphetamines Screen Negative U Benzodiazepines Scrn Negative Urine Cocaine Screen Negative U Marijuana (THC) Screen Negative Labs on day of discharge: Labs from last 24 hours 03/16/17 04:21 WBC 9.2 RBC 2.98 L Hgb 9.6 L D Hct 29.0 L MCV 97.3 MCH 32.2 MCHC 33.1 RDW 13.8 Plt Count 138 L MPV 11.1 Immature Gran % 0.7 Seg Neutrophils % 77.2 Lymphocytes % 14.5 Monocytes % 6.1 Eosinophils % 1.2 Basophils % 0.3 Neutrophils # 7.1 Lymphocytes # 1.3 Monocytes # 0.6 Eosinophils # 0.1 Basophils # 0.0 Nucleated RBCs/100 WBC 0.2 H Date of admission: 03/14/17 12:56 Primary care physician: Jesse Elaine MD Consults: 03/15/17 11:01 Consult to Import/Export Agent [CONS] Routine Comment: Vaginal delivery, consult needed Discharging clinician: Sveta Reilly Anticipated date of discharge: 03/16/17 - Patient Status Disposition: Home, Self-Care Condition: Good Functional capacity at discharge: independent ambulation Overall status at discharge: patient is progressing back to baseline - Discharge Instructions Follow Up With: Jesse Elaine MD [Primary Care Provider] - Sue Saenz CNM [Non-Partnered Physician] - - Diet and Activity Activity: increase activity as tolerated Diet: regular diet Hospital Course Reason for admission: induction of labor, IUP at term Delivery: Episiotomy: none Laceration: 1st degree Other procedures: none complications: uterine atony Discharge diagnosis: IUP at term delivered [place] baby: female Time Attestation: Total time spent providing and/or coordinating discharge services: Time Spent: Less than 30 minutes Exam - Constitutional Vitals: Temp Pulse Resp BP Pulse Ox 97.6 F 102 16 109/73 98 03/16/17 07:30 03/16/17 07:30 03/16/17 10:48 03/16/17 07:30 03/16/17 03:25 General appearance IM: A&O X 3 - Respiratory Respiratory exam: Present: CTAB - Cardiovascular Cardiovascular exam IM: Present: RRR, +S1, +S2 - GI/Abdominal GI/Abdominal exam IM: normal bowel sounds, soft - Rectal Rectal exam: deferred - Uterine Tone: Firm Uterus Position: At Umbilicus - Extremities Exam Extremities exam IM: Present: full ROM, pedal edema - Neurological Exam Neurological exam: oriented X3 - Psychiatric Additional comments: Pt reports she is feeling mentally well.
== END 2017-03-16 13:30 | disposition home or self-care (01) | DRG 775 ==
LOC: 1NENULAB → 1NENUOBS 03-15 13:15
PROVIDERS: ADMIT Obstetrics & Gynecology; ATTEND Obstetrics & Gynecology

== ENCOUNTER 2018-10-08 17:26 | Observation (INO) ==
[2018-10-08] MEDS ORDERED: Ringers Solution, Lactated 1,000 ML IVC SCH (18:30)
[2018-10-08] MEDS ORDERED: Ringers Solution, Lactated 1,000 ML ONE (18:31)
[2018-10-08] MEDS ORDERED: Famotidine 20 MG/2 ML VIAL IVP ONE (22:00)
[2018-10-08] MEDS ORDERED: Metoclopramide 10 MG/2 ML VIAL IVP ONE (22:00)
[2018-10-09] MEDS ORDERED: Bupivacaine/EPI 1:200k 0.25%PF 10 ML VIAL INFILT ONE (00:02)
--- NOTE | 2018-10-09 00:08 | Anesthesia Evaluation PreOp ---
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: Denies Any Significant HX Other Medical History: Denies Any Significant HX Anesthesia History: No Prior Anesthetic Complications : No Test: Negative Alcohol Use: none Drug use: none Medications and Allergies Amoxicillin [Amoxil] 500 mg PO TID 06/07/18 [History] GuaiFENesin ER [Mucinex] 600 mg PO BID #20 tbbp.12hr 06/07/18 [Rx] Loratadine [Allergy Relief] 10 mg PO DAILY #10 tablet 06/07/18 [Rx] Allergy/AdvReac Type Severity Reaction Status Date / Time No Known Allergies Allergy Verified 05/31/17 08:23 - Meds/Allergy Pre-op Review Medications Reviewed: Yes Allergies Reviewed: Yes Beta Blockers on Current Med List: No Anesthesia Results - Labs Laboratory Tests 01/23/17 10/08/18 10/08/18 17:25 16:53 16:53 Hgb 9.8 L Hct 32.6 L Plt Count 350 Sodium 137 Potassium 3.5 BUN 5 L Creatinine 0.61 Serum , Qual Negative Anesthesia Exam O2 Sat Height 1.7 m Weight 86.183 kg O2 Sat by Pulse Oximetry 97 Vital Signs Temp Pulse Resp BP Pulse Ox 98.3 F 79 16 108/73 97 10/08/18 19:30 10/08/18 19:30 10/08/18 19:30 10/08/18 19:30 10/08/18 19:30 Height: 5'7 Weight: 190 lbs NPO (# of Hours): MN Pain Scale: 0 - HEENT Pupil (Motor): Pupils equal, EOMI Mallampati: II Teeth: Normal Oral Opening: Greater than 3 - INSPECTOR MATERIAL DISPOSITION LOC: Oriented INSPECTOR MATERIAL DISPOSITION Motor: Normal RUE, Normal LUE, Normal RLE, Normal LLE, Normal Face INSPECTOR MATERIAL DISPOSITION Sensory: Normal: RUE, LUE, RLE, LLE, Face - Cardiac Rhythm: Regular Murmur: None JVD: No Carotid Bruit: No - Pulmonary Breath Sounds: bilateral Clear Respiratory Effort: Symmetrical Anesthesia Assess/Plan ASA Score: 1 Level of consciousness: Cooperative, Oriented Anesthetic Plan: General Autologous Blood: No Monitoring Plan: Standard Monitors Recovery Plan: PACU (Discussed GA, agrees to proceed)
[2018-10-09] MEDS ORDERED: Acetaminophen IV 1,000 MG/100 ML INFUS..BTL ONE (00:15)
[2018-10-09] MEDS ORDERED: *HR* FentaNYL (PF) 100 MCG/2 ML VIAL ONE (00:27)
[2018-10-09] MEDS ORDERED: *HR* Succinylcholine 200 MG/10 ML VIAL IVP ONE (00:27)
[2018-10-09] MEDS ORDERED: *HR* Propofol 200 MG/20 ML VIAL IVP ONE (00:27)
[2018-10-09] MEDS ORDERED: Lidocaine -MPF 2% 2 ML VIAL ONE (00:27)
[2018-10-09] MEDS ORDERED: Ondansetron 4 MG/2 ML VIAL ONE (00:27)
--- NOTE | 2018-10-09 00:50 | OB/GYN History & Physical ---
Date of Encounter: 10/09/18 Time of Encounter: 00:48 Assessment and Plan (1) Malpositioned intrauterine device (IUD) Current visit: Yes Status: Acute Pt with malpositioned IUD with pain and bleeding. Unable to remove in office b/c of discomfort. Will proceed with removal under anesthesia. Qualifiers: Encounter type: sequela Qualified Code(s): T83.32XS - Displacement of intrauterine contraceptive device, sequela History of Present Illness Chief complaint: malpositioned IUD HPI: Ms. Boucher is a 23 year old female presents with heavy bleeding and pelvic pain found on u/s and x-ray to have malpostioned IUD. IUD appears to be perforating through posterior cervix. Her bleeding has not responded to hormonal management and she is getting anemic. Attempt at removal in office was not sucessful b/c of pain. Past Med Surg Social Fam HX - Past Medical History Source: patient, old records reviewed Medical history: kidney stones Additional medical history: tonsils and tongue sx Psychiatric history: no psych history - Past Surgical History Surgical History: other Additional surgical history: T&A, Tongue sx - Social History Smoking Status: Never smoker Smokeless Tobacco Status: No Alcohol use: none Drug use: none - Family History Mother Living Status: Still Living Hx Family Cardiac Disorders: No Hx Family Respiratory Disorders: No Hx Family Cancer: No Hx Family GI Disorders: No Hx Family Endocrine Disorder: No Hx Family Neuromuscular Disorders: No Hx Family Neurologic Disorders: No Hx Family HEENT Disorders: No Hx Family Autoimmune Disorders: No Father Adopted: No Living Status: Still Living Hx Family Cardiac Disorders: No Hx Family Respiratory Disorders: No Hx Family Cancer: No Hx Family GI Disorders: No Hx Family Endocrine Disorder: No Hx Family Neuromuscular Disorders: No Hx Family Neurologic Disorders: No Hx Family HEENT Disorders: No Hx Family Autoimmune Disorders: No Medications and Allergies Amoxicillin [Amoxil] 500 mg PO TID 06/07/18 [History] GuaiFENesin ER [Mucinex] 600 mg PO BID #20 [id number].12hr 06/07/18 [Rx] Loratadine [Allergy Relief] 10 mg PO DAILY #10 tablet 06/07/18 [Rx] Allergy/AdvReac Type Severity Reaction Status Date / Time No Known Allergies Allergy Verified 05/31/17 08:23 Exam - Vital Signs Vital signs: Initial Vital Signs Temp Pulse Resp BP Pulse Ox 98.3 F 79 16 108/73 97 10/08/18 19:30 10/08/18 19:30 10/08/18 19:30 10/08/18 19:30 10/08/18 19:30 - Constitutional Constitutional: well nourished - HEENT HEENT: EOMI, PERRL - Neck Neck exam: full ROM - Lungs Respiratory exam: CTAB - Cardiovascular Cardiovascular exam: RRR - Abdomen Abdomen: Present: bowel sounds normal Abdomen detail: right lower quadrant: tenderness, left lower quadrant: tenderness - Extremities Extremities exam: full ROM Deep Tendon Reflex Grade: 2+ Normal - Uterus Uterus exam: Present: tender Results All other labs normal.
[2018-10-09] MEDS ORDERED: Dexamethasone 4 MG/ML VIAL ONE (01:03)
--- NOTE | 2018-10-09 01:22 | OB/GYN Procedure Note ---
[facility]: Procedure - Diagnosis Date of procedure: 10/09/18 Pre-op diagnosis: Malpositioned IUD, pelvic pain, heavy uterine bleeding with resultant anemia, intollerance to attempted removal in office Post-op diagnosis: same - Procedure Procedure: Removal of malpositioned IUD under anesthesia Surgeon: King Padgett Was there an executive assistant to president present: No Anesthesia Type: General Estimated blood loss (cc): 5 Fluids: crystalloid Procedure Complications: none Specimens collected: none Disposition: PACU Findings: IUD within cervix Narrative: 23-year-old female found yesterday to have malpositioned IUD based on ultrasound and x-ray. She is been having very heavy bleeding and severe pelvic pain that has not responded to conservative measures. Attempted removal in office today w as unsuccessful by exam it appeared that the IUD was perforating through the posterior cervix and left side was within the cervix. I did attempt in office was unsuccessful decision was made to proceed to the OR for IUD removal. Patient was aware operative risks and signed appropriate consent. Description procedure: Patient was taken operating room where general anesthesia was administered. Bladder was drained of clear urine. This point after prepping vagina speculum was placed in the vagina and IUD was visualized and easily removed without difficulty. There was minimal if any bleeding. Patient was awakened taken recovery in good condition. During the surgery there did not appear to be any damage to the cervix or vagina.
[2018-10-09] MEDS ORDERED: Ondansetron 4 MG/2 ML VIAL IVP PRN (01:47)
[2018-10-09] MEDS ORDERED: Ibuprofen 600 MG TABLET PO PRN (01:47)
--- NOTE | 2018-10-09 06:23 | Anesthesia Evaluation Post Op ---
Date of Encounter: 10/09/18 Time of Encounter: 06:00 - Vital Signs Vital Signs: Vital Signs/O2 Sat/Glucose, Most Current Temp Pulse Resp BP Pulse Ox 10/09/18 05:31 98.7 F 89 16 106/59 98 10/09/18 04:15 99 F 97 16 106/59 100 10/09/18 03:15 99.1 F 98 16 113/70 99 10/09/18 02:40 97.7 F 82 16 112/65 99 - Lungs Lungs: Clear Ascult./Percussion - Airway Airway: Non-obstructed - Cardiovascular Regular Rate - Mental Status Mental Status: Alert & Oriented, Answers Appropriately - Pain Pain Scale: 0 - Nausea Vomiting Nausea Vomiting: Not Present - Hydration Hydration: Ice chips - Discharge PostOp Status: Transfer Patient to floor
[2018-10-09] MEDS ORDERED: Chloraseptic Spray 177 ML BOTTLE MM PRN (07:10)
--- NOTE | 2018-10-09 07:10 | Event Note ---
Date of Encounter: 10/09/18 Time of Encounter: 07:09 Doing well post op s/p IUD removal under anesthesia. Minimal bleeding or pain. Does c/o sore throat. Will d/c home with f/u in 2-3 weeks. She has rx for ocp's to take at home. She has Ultram and Anaprox for pain. Will d/c home.
[2018-10-09 08:24] VITALS: BP 109/65
== END 2018-10-09 08:24 | disposition home or self-care (01) ==
LOC: 1NENUOBS → 1NENUPED 10-09 07:32
PROVIDERS: ADMIT Obstetrics & Gynecology; ATTEND Obstetrics & Gynecology

== ENCOUNTER 2021-07-16 21:13 | Inpatient (IN) ==
[2021-07-16] MEDS ORDERED: 0.9 % Sodium Chloride 1,000 ML IVC ONE (21:28)
[2021-07-16] MEDS ORDERED: Metoclopramide 10 MG/2 ML VIAL IVP ONE (21:37)
[2021-07-16 22:12] LABS: Basophils % 0.3 %; Eosinophils % 0.4 %; Hematocrit 40.4 % (35.3-44.9); Hemoglobin 14.3 g/dL (11.5-15.4); Immature Granulocytes % 0.5 % (0-4); Lymphocytes % 9.8 %; Mean Corpuscular HGB Conc 35.4 g/dL (31.6-35.5); Mean Corpuscular Hemoglobin 27.6 pg (28.0-33.3); Mean Platelet Volume 10.3 fL (9.4-12.4); Monocytes # 0.8 K/mcL (0.0-1.3); Monocytes % 7.8 %; Neutrophils # 8.5 K/mcL (1.6-8.9); Platelet Count 352 K/mcL (140-400); Red Blood Count 5.18 M/mcL (3.82-4.97); Red Cell Distribution Width 14.7 % (11.5-14.5); Segmented Neutrophils % 81.2 %; White Blood Count 10.5 K/mcL (4.3-11.1)
[2021-07-16 22:34] LABS: Alanine Aminotransferase 114 Units/L (7-52); Albumin 5.1 g/dL (3.5-5.7); Albumin/Globulin Ratio 1.6 (1.1-2.2); Alkaline Phosphatase 107 Units/L (34-104); Aspartate Amino Transferase 49 Units/L (13-39); BUN/Creatinine Ratio 16 (6-26); Bilirubin,Direct 0.4 mg/dL (0.0-0.2); Bilirubin,Total 1.4 mg/dL (0.3-1.0); Blood Urea Nitrogen 15 mg/dL (6-20); Calcium 10.3 mg/dL (8.6-10.3); Carbon Dioxide 16 mEq/L (23-29); Chloride 89 mEq/L (98-107); Globulin 3.1 g/dL (2.4-3.5); Glucose 128 mg/dL (70-105); Lipase 48 Units/L (11-82); Osmolality,Calculated 268 (280-300); Potassium 2.3 mEq/L (3.5-5.1); Sodium 128 mEq/L (136-145); Total Protein 8.2 g/dL (6.4-8.9); eGFR For African Americans > 60 (> 60); eGFR For Non-African Americans > 60 (> 60)
[2021-07-16] MEDS ORDERED: Ringers Solution, Lactated 1,000 ML IVC ONE (23:44)
[2021-07-17] MEDS ORDERED: D5% in Lactated Ringers 1,000 ML IVC SCH (00:30)
[2021-07-17 00:42] LABS: Bacteria,Urine Few per hpf (None-Few); Bilirubin,Urine Negative (Negative); Blood,Urine Negative (Negative); Clarity,Urine Turbid (Clear); Color,Urine Yellow (Yellow); Glucose,Urine (UA) Normal (Normal); Hyaline Casts,Urine Many per lpf (None Seen); Ketones,Urine >150 mg/dL (Negative); Leukocyte Esterase,Urine Trace (Negative); Mucus,Urine Few per lpf (None-Few); Nitrite,Urine Negative (Negative); PH,Urine 5.5 pH Units (5.0-8.0); Protein,Urine 50 mg/dL (Neg-Trace); RBC,Urine 0-3 per hpf (0-3); Specific Gravity,Urine 1.022 (1.010-1.025); Squamous Epithelial Cell,Urine Few per hpf (None-Few)
[2021-07-17 01:12] LABS: VBG HCO3 20 mEq/L (21-27); VBG PCO2 33 mmHg (41-51); VBG PH 7.39 pH Units (7.32-7.42); VBG PO2 48 mmHg (25-50)
[2021-07-17] MEDS ORDERED: Famotidine 20 MG/2 ML VIAL IVP ONE (01:14)
[2021-07-17] MEDS ORDERED: *HR* HYDROmorphone (PF) 1 MG/ML SYRINGE IVP ONE (01:36)
[2021-07-17] MEDS ORDERED: 0.9 % Sodium Chloride 1,000 ML IVC ONE (01:37)
[2021-07-17 02:35] LABS: Magnesium 1.7 mg/dL (1.6-2.6)
[2021-07-17 03:04] LABS: Influenza A PCR Negative (Negative); Influenza B PCR Negative (Negative); Resp. Syncytial Virus PCR Negative (Negative)
[2021-07-17 03:05] LABS: SARS-CoV-2 by PCR (In House) Negative (Negative)
[2021-07-17] MEDS ORDERED: Naloxone 0.4 MG/ML INJ IVP PRN (06:03)
[2021-07-17 07:07] LABS: Gardnerella DNA DETECTED (Not Detect); Trichomonas DNA Not Detected (Not Detect)
[2021-07-17 07:08] LABS: Candida DNA Not Detected (Not Detect)
[2021-07-17] MEDS: 0.9 % Sodium Chloride 1,000 ML IVC SCH ×2 (07:50→14:35)
[2021-07-17 09:34] LABS: Alanine Aminotransferase 72 Units/L (7-52); Albumin 3.3 g/dL (3.5-5.7); Albumin/Globulin Ratio 1.5 (1.1-2.2); Alkaline Phosphatase 68 Units/L (34-104); Aspartate Amino Transferase 30 Units/L (13-39); BUN/Creatinine Ratio 11 (6-26); Bilirubin,Total 0.8 mg/dL (0.3-1.0); Blood Urea Nitrogen 6 mg/dL (6-20); Calcium 8.2 mg/dL (8.6-10.3); Carbon Dioxide 23 mEq/L (23-29); Chloride 101 mEq/L (98-107); Gamma Glutamyl Transpeptidase 29 Units/L (7-64); Globulin 2.2 g/dL (2.4-3.5); Glucose 98 mg/dL (70-105); Osmolality,Calculated 274 (280-300); Phosphorous 2.5 mg/dL (2.7-4.5); Potassium 2.6 mEq/L (3.5-5.1); Sodium 133 mEq/L (136-145); Total Protein 5.5 g/dL (6.4-8.9); eGFR For African Americans > 60 (> 60); eGFR For Non-African Americans > 60 (> 60)
[2021-07-17 09:35] LABS: Magnesium 1.8 mg/dL (1.6-2.6)
[2021-07-17 09:36] LABS: Troponin I < 0.03 ng/mL (< 0.04)
[2021-07-17 09:50] LABS: Thyroid Stimulating Hormone 0.873 mcIU/mL (0.340-5.600)
[2021-07-17] MEDS ORDERED: Ondansetron 4 MG/2 ML VIAL IVP PRN (11:44)
[2021-07-17] MEDS ORDERED: D5% in Water 1,000 ML IVC PRN (13:24)
[2021-07-17] MEDS ORDERED: Dextrose Gel 15 GM/37.5 ML TUBE PO PRN ×2 (13:24)
[2021-07-17] MEDS ORDERED: *HR* Dextrose 50 % in Water (Syg) 50 ML SYRINGE IVP PRN (13:24)
[2021-07-17] MEDS: Calcium Gluconate 1gm/50mL 1 GM/50 ML BAG IVPB SCH ×2 (13:40→14:40)
[2021-07-17] MEDS: Acetaminophen 325 MG TABLET PO PRN (15:28)
[2021-07-17] MEDS ORDERED: Scopolamine Patch 1.5 MG PATCH.TD72 TD SCH (17:45)
[2021-07-17] MEDS: Ondansetron 4 MG/2 ML VIAL IVP SCH ×2 (18:23→21:59)
[2021-07-17] MEDS ORDERED: Perflutren Lipid Microsphere 1.3 ML in 0.9 % Sodium Chloride 8.7 ML IVP PRN (19:22)
[2021-07-17] MEDS: POTASSIUM CHLORIDE IVPB SCH (21:58)
[2021-07-17] MEDS: [UNRECOGNIZED DRUG - OTHER] IVPB SCH (21:58)
[2021-07-17] MEDS: PYRIDOXINE IVPB SCH (21:58)
[2021-07-17] MEDS: DIPHENHYDRAMINE IVPB SCH (21:58)
[2021-07-17] MEDS: MetroNIDAZOLE Vaginal Gel VG SCH (22:10)
[2021-07-18] MEDS: Ondansetron 4 MG/2 ML VIAL IVP SCH ×6 (01:47→21:05)
[2021-07-18] MEDS: PYRIDOXINE IVPB SCH ×2 (09:42→15:47)
[2021-07-18] MEDS: [UNRECOGNIZED DRUG - OTHER] IVPB SCH (09:42)
[2021-07-18] MEDS: DIPHENHYDRAMINE IVPB SCH ×2 (09:42→15:47)
[2021-07-18] MEDS: POTASSIUM CHLORIDE IVPB SCH (09:42)
[2021-07-18 09:56] LABS: Hematocrit 28.7 % (35.3-44.9); Mean Corpuscular HGB Conc 33.4 g/dL (31.6-35.5); Mean Corpuscular Hemoglobin 27.3 pg (28.0-33.3); Mean Corpuscular Volume 81.5 fL (83.0-100.0); Mean Platelet Volume 10.2 fL (9.4-12.4); Platelet Count 190 K/mcL (140-400); Red Blood Count 3.52 M/mcL (3.82-4.97); Red Cell Distribution Width 14.9 % (11.5-14.5); White Blood Count 5.3 K/mcL (4.3-11.1)
[2021-07-18 10:02] LABS: Hemoglobin 9.6 g/dL (11.5-15.4)
[2021-07-18 10:36] LABS: Folate 8.7 ng/mL (3.0-16.0)
[2021-07-18 10:39] LABS: % Iron Saturation 13 % (15-50); Alanine Aminotransferase 60 Units/L (7-52); Albumin 3.4 g/dL (3.5-5.7); Albumin/Globulin Ratio 1.9 (1.1-2.2); Alkaline Phosphatase 60 Units/L (34-104); Aspartate Amino Transferase 26 Units/L (13-39); Bilirubin,Total 0.7 mg/dL (0.3-1.0); Blood Urea Nitrogen < 2 mg/dL (6-20); Calcium 8.4 mg/dL (8.6-10.3); Carbon Dioxide 25 mEq/L (23-29); Chloride 103 mEq/L (98-107); Ferritin 19 ng/mL (10-120); Globulin 1.8 g/dL (2.4-3.5); Glucose 117 mg/dL (70-105); Iron 43 mcg/dL (50-170); Magnesium 1.5 mg/dL (1.6-2.6); Phosphorous 2.6 mg/dL (2.7-4.5); Potassium 2.9 mEq/L (3.5-5.1); Sodium 135 mEq/L (136-145); Total Protein 5.2 g/dL (6.4-8.9); Transferrin 228 mg/dL (203-362); eGFR For African Americans > 60 (> 60); eGFR For Non-African Americans > 60 (> 60)
[2021-07-18] MEDS: Acetaminophen 325 MG TABLET PO PRN (11:02)
[2021-07-18] MEDS: [UNRECOGNIZED DRUG - OTHER] IVPB SCH (15:47)
[2021-07-18] MEDS: MVI IVPB SCH (15:47)
[2021-07-18] MEDS: VITAMIN K IVPB SCH (15:47)
[2021-07-18] MEDS ORDERED: 0.9 % Sodium Chloride 500 ML ONE (15:57)
[2021-07-18] MEDS: Magnesium Oxide 400 MG TABLET PO SCH (21:05)
[2021-07-18] MEDS: Famotidine 20 MG TABLET PO SCH (21:05)
[2021-07-18] MEDS: MetroNIDAZOLE Vaginal Gel VG SCH (21:06)
[2021-07-19 01:10] LABS: Basophils % 0.3 %; Eosinophils # 0.1 K/mcL (0.0-0.6); Hematocrit 30.9 % (35.3-44.9); Hemoglobin 10.4 g/dL (11.5-15.4); Immature Granulocytes % 0.7 % (0-4); Lymphocytes % 14.9 %; Mean Corpuscular HGB Conc 33.7 g/dL (31.6-35.5); Mean Corpuscular Hemoglobin 27.7 pg (28.0-33.3); Mean Corpuscular Volume 82.2 fL (83.0-100.0); Mean Platelet Volume 10.4 fL (9.4-12.4); Monocytes # 0.5 K/mcL (0.0-1.3); Monocytes % 6.8 %; Neutrophils # 5.3 K/mcL (1.6-8.9); Platelet Count 200 K/mcL (140-400); Red Blood Count 3.76 M/mcL (3.82-4.97); Segmented Neutrophils % 76.3 %
[2021-07-19 02:05] LABS: Alanine Aminotransferase 52 Units/L (7-52); Albumin 3.3 g/dL (3.5-5.7); Albumin/Globulin Ratio 1.4 (1.1-2.2); Alkaline Phosphatase 61 Units/L (34-104); Aspartate Amino Transferase 21 Units/L (13-39); Bilirubin,Total 0.8 mg/dL (0.3-1.0); Blood Urea Nitrogen < 2 mg/dL (6-20); Calcium 8.6 mg/dL (8.6-10.3); Carbon Dioxide 24 mEq/L (23-29); Chloride 103 mEq/L (98-107); Globulin 2.3 g/dL (2.4-3.5); Glucose 105 mg/dL (70-105); Magnesium 1.6 mg/dL (1.6-2.6); Potassium 2.7 mEq/L (3.5-5.1); Sodium 135 mEq/L (136-145); Total Protein 5.6 g/dL (6.4-8.9); eGFR For African Americans > 60 (> 60); eGFR For Non-African Americans > 60 (> 60)
[2021-07-19] MEDS: Ondansetron 4 MG/2 ML VIAL IVP SCH ×6 (02:05→20:38)
[2021-07-19] MEDS: Magnesium Oxide 400 MG TABLET PO SCH ×2 (09:19→20:35)
[2021-07-19] MEDS: Famotidine 20 MG TABLET PO SCH ×2 (09:20→20:35)
[2021-07-19] MEDS: DIPHENHYDRAMINE IVPB SCH (18:30)
[2021-07-19] MEDS: PYRIDOXINE IVPB SCH (18:30)
[2021-07-19] MEDS: [UNRECOGNIZED DRUG - OTHER] IVPB SCH (18:30)
[2021-07-19] MEDS: MVI IVPB SCH (18:30)
[2021-07-19] MEDS: VITAMIN K IVPB SCH (18:30)
[2021-07-19] MEDS: MetroNIDAZOLE Vaginal Gel VG SCH (20:36)
[2021-07-20] MEDS: Ondansetron 4 MG/2 ML VIAL IVP SCH ×3 (02:16→09:25)
[2021-07-20 03:50] VITALS: BP 104/69; PULSE 105; TEMP 97.5; O2SAT 98
[2021-07-20 05:48] LABS: Alanine Aminotransferase 36 Units/L (7-52); Albumin 3.2 g/dL (3.5-5.7); Albumin/Globulin Ratio 1.5 (1.1-2.2); Alkaline Phosphatase 66 Units/L (34-104); Aspartate Amino Transferase 12 Units/L (13-39); BUN/Creatinine Ratio 9 (6-26); Bilirubin,Total 0.7 mg/dL (0.3-1.0); Blood Urea Nitrogen 5 mg/dL (6-20); Calcium 8.4 mg/dL (8.6-10.3); Carbon Dioxide 26 mEq/L (23-29); Chloride 103 mEq/L (98-107); Globulin 2.1 g/dL (2.4-3.5); Glucose 112 mg/dL (70-105); Magnesium 1.4 mg/dL (1.6-2.6); Osmolality,Calculated 278 (280-300); Phosphorous 2.4 mg/dL (2.7-4.5); Potassium 3.5 mEq/L (3.5-5.1); Sodium 135 mEq/L (136-145); Total Protein 5.3 g/dL (6.4-8.9); eGFR For African Americans > 60 (> 60); eGFR For Non-African Americans > 60 (> 60)
[2021-07-20] MEDS: Famotidine 20 MG TABLET PO SCH (09:24)
[2021-07-20] MEDS: Magnesium Oxide 400 MG TABLET PO SCH (09:24)
== END 2021-07-20 10:01 | disposition home or self-care (01) | DRG 566 ==
LOC: EMEROOARM 21:13 → 3ANU 21:13 → SUATTDRO 07-17 06:20 → 3ANU 07-17 06:54
PROVIDERS: ADMIT Internal Medicine; ATTEND Internal Medicine

== ENCOUNTER 2021-08-28 20:43 | Observation (INO) ==
[2021-08-28] MEDS ORDERED: 0.9 % Sodium Chloride 500 ML IVC ONE (21:13)
[2021-08-28] MEDS ORDERED: Metoclopramide 10 MG/2 ML VIAL IVP ONE (21:24)
[2021-08-28] MEDS ORDERED: Famotidine 20 MG/2 ML VIAL IVP ONE (21:24)
[2021-08-28 21:26] LABS: Basophils % 0.2 %; Eosinophils % 0.1 %; Hematocrit 35.4 % (35.3-44.9); Hemoglobin 12.4 g/dL (11.5-15.4); Immature Granulocytes % 0.8 % (0-4); Lymphocytes # 1.1 K/mcL (0.6-4.6); Lymphocytes % 9.8 %; Mean Corpuscular Hemoglobin 30.8 pg (28.0-33.3); Mean Corpuscular Volume 87.8 fL (83.0-100.0); Mean Platelet Volume 9.5 fL (9.4-12.4); Monocytes # 0.5 K/mcL (0.0-1.3); Monocytes % 4.6 %; Neutrophils # 9.3 K/mcL (1.6-8.9); Platelet Count 334 K/mcL (140-400); Red Blood Count 4.03 M/mcL (3.82-4.97); Red Cell Distribution Width 17.6 % (11.5-14.5); Segmented Neutrophils % 84.5 %; White Blood Count 11.1 K/mcL (4.3-11.1)
[2021-08-28 21:35] LABS: INR 1.3; Prothrombin Time 14.6 Seconds (9.4-12.1)
[2021-08-28 21:37] LABS: Activated Partial Thrombo Time 28.2 Seconds (26.0-36.0); Alanine Aminotransferase 18 Units/L (7-52); Albumin 4.4 g/dL (3.5-5.7); Albumin/Globulin Ratio 1.4 (1.1-2.2); Alkaline Phosphatase 68 Units/L (34-104); Aspartate Amino Transferase 18 Units/L (13-39); BUN/Creatinine Ratio 8 (6-26); Bilirubin,Direct 0.1 mg/dL (0.0-0.2); Bilirubin,Indirect 0.8 mg/dL (0.0-1.0); Bilirubin,Total 0.9 mg/dL (0.3-1.0); Blood Urea Nitrogen 5 mg/dL (6-20); Calcium 9.7 mg/dL (8.6-10.3); Carbon Dioxide 21 mEq/L (23-29); Chloride 100 mEq/L (98-107); Globulin 3.1 g/dL (2.4-3.5); Glucose 135 mg/dL (70-105); Lipase 11 Units/L (11-82); Osmolality,Calculated 287 (280-300); Potassium 2.9 mEq/L (3.5-5.1); Sodium 139 mEq/L (136-145); Total Protein 7.5 g/dL (6.4-8.9); Troponin I < 0.03 ng/mL (< 0.04); eGFR For African Americans > 60 (> 60); eGFR For Non-African Americans > 60 (> 60)
[2021-08-28] MEDS ORDERED: Potassium Effervescent 25 MEQ TABLET.EFF PO ONE (23:07)
[2021-08-28] MEDS ORDERED: 0.9 % Sodium Chloride 1,000 ML ONE (23:17)
[2021-08-28] MEDS ORDERED: 0.9 % Sodium Chloride 1,000 ML IV ONE (23:29)
[2021-08-29] MEDS ORDERED: Ondansetron 4 MG/2 ML VIAL IVP ONE (00:21)
[2021-08-29] MEDS ORDERED: Ondansetron ODT 4 MG TAB.RAPDIS SL PRN (02:24)
[2021-08-29] MEDS ORDERED: Ondansetron 4 MG/2 ML VIAL IVP PRN (02:24)
[2021-08-29] MEDS ORDERED: Naloxone 0.4 MG/ML INJ IVP PRN (02:24)
[2021-08-29] MEDS ORDERED: D5% in 0.45% NACL w KCl 20 MEQ/1,000 ML MLS IVC SCH (02:45)
[2021-08-29] MEDS ORDERED: Acetaminophen 325 MG TABLET PO PRN (02:52)
[2021-08-29] MEDS ORDERED: 1: Ringers Solution, Lactated 1,000 ML with Promethazine 50 MG 2: Ringers Solution, Lac IV SCH (04:00)
[2021-08-29] MEDS ORDERED: Pyridoxine (B-6) 50 MG in Ringers Solution, Lactated 1,000 ML IVPB ONE (04:00)
[2021-08-29] MEDS ORDERED: Famotidine 20 MG TABLET PO SCH (06:00)
[2021-08-29 06:49] LABS: BUN/Creatinine Ratio 9 (6-26); Blood Urea Nitrogen 4 mg/dL (6-20); Calcium 8.5 mg/dL (8.6-10.3); Carbon Dioxide 22 mEq/L (23-29); Chloride 102 mEq/L (98-107); Glucose 93 mg/dL (70-105); Osmolality,Calculated 277 (280-300); Sodium 135 mEq/L (136-145); eGFR For African Americans > 60 (> 60); eGFR For Non-African Americans > 60 (> 60)
[2021-08-29 08:11] VITALS: BP 100/64; PULSE 79; TEMP 98.4; O2SAT 96
[2021-08-29] MEDS ORDERED: MVI, adult with vitamin K 10 ML in Ringers Solution, Lactated 1,000 ML IVPB ONE (12:00)
== END 2021-08-29 10:30 | disposition home or self-care (01) ==
LOC: 1NENUOBS 20:43 → EMEROOARM 20:43 → 1NENUOBS 08-29 01:42
PROVIDERS: ADMIT Advanced Practice Midwife; ATTEND Advanced Practice Midwife

== ENCOUNTER → 2021-10-29 01:22 | Observation (INO) ==
[2021-10-29 00:49] LABS: Bacteria,Urine Few per hpf (None-Few); Bilirubin,Urine Negative (Negative); Blood,Urine Negative (Negative); Clarity,Urine Clear (Clear); Color,Urine Yellow (Yellow); Glucose,Urine (UA) Normal (Normal); Ketones,Urine Trace mg/dL (Negative); Leukocyte Esterase,Urine Moderate (Negative); Mucus,Urine Many per lpf (None-Few); Nitrite,Urine Negative (Negative); PH,Urine 6.5 pH Units (5.0-8.0); Protein,Urine 50 mg/dL (Neg-Trace); RBC,Urine 0-3 per hpf (0-3); Specific Gravity,Urine > 1.030 (1.010-1.025); Squamous Epithelial Cell,Urine Moderate per hpf (None-Few)
[2021-10-29 01:49] LABS: Candida DNA DETECTED (Not Detect); Gardnerella DNA Not Detected (Not Detect); Trichomonas DNA Not Detected (Not Detect)
== END | disposition home or self-care (01) ==
LOC: 1NENULAB
PROVIDERS: ADMIT Registered Nurse; ATTEND Registered Nurse

== ENCOUNTER → 2021-11-03 23:30 | Observation (INO) ==
[2021-11-03 21:29] LABS: Bilirubin,Urine Moderate (Negative); Blood,Urine Negative (Negative); Clarity,Urine Cloudy (Clear); Color,Urine Yellow (Yellow); Glucose,Urine (UA) Normal (Normal); Ketones,Urine >=160 mg/dL (Negative); Leukocyte Esterase,Urine Trace (Negative); Nitrite,Urine Positive (Negative); Protein,Urine 100 mg/dL (Neg-Trace); Specific Gravity,Urine >= 1.030 (1.010-1.025); Urobilinogen,Urine Normal (Normal)
[2021-11-03 21:31] LABS: Bacteria,Urine Many per hpf (None-Few); Mucus,Urine Many per lpf (None-Few); Squamous Epithelial Cell,Urine Many per hpf (None-Few)
[2021-11-03 21:32] LABS: Transitional Epi Cells,Urine Few per hpf (None-Few)
[2021-11-03 22:23] LABS: Hematocrit 26.9 % (35.3-44.9); Mean Corpuscular HGB Conc 33.5 g/dL (31.6-35.5); Mean Corpuscular Hemoglobin 31.7 pg (28.0-33.3); Mean Corpuscular Volume 94.7 fL (83.0-100.0); Mean Platelet Volume 9.7 fL (9.4-12.4); Platelet Count 235 K/mcL (140-400); Red Blood Count 2.84 M/mcL (3.82-4.97); Red Cell Distribution Width 15.7 % (11.5-14.5)
[2021-11-03 22:36] LABS: Alanine Aminotransferase 5 Units/L (7-52); Albumin 3.6 g/dL (3.5-5.7); Albumin/Globulin Ratio 1.4 (1.1-2.2); Alkaline Phosphatase 76 Units/L (34-104); Aspartate Amino Transferase 10 Units/L (13-39); BUN/Creatinine Ratio 11 (6-26); Blood Urea Nitrogen 6 mg/dL (6-20); Calcium 8.6 mg/dL (8.6-10.3); Carbon Dioxide 23 mEq/L (23-29); Chloride 103 mEq/L (98-107); Globulin 2.5 g/dL (2.4-3.5); Glucose 145 mg/dL (70-105); Magnesium 1.8 mg/dL (1.6-2.6); Osmolality,Calculated 282 (280-300); Phosphorous 3.2 mg/dL (2.7-4.5); Potassium 2.8 mEq/L (3.5-5.1); Sodium 136 mEq/L (136-145); Total Protein 6.1 g/dL (6.4-8.9)
[2021-11-03 23:05] LABS: Adenovirus Not Detected (Not Detect); Bordetella Pertussis Not Detected (Not Detect); Chlamydophila pneumoniae Not Detected (Not Detect); Coronavirus 229E Not Detected (Not Detect); Coronavirus HKU1 Not Detected (Not Detect); Coronavirus NL63 Not Detected (Not Detect); Coronavirus OC43 Not Detected (Not Detect); Human Metapneumovirus Not Detected (Not Detect); Human Rhinovirus/Enterovirus DETECTED (Not Detect); Influenza A Subtype 2009 H1 Not Detected (Not Detect); Influenza B Not Detected (Not Detect); Mycoplasma pneumoniae Not Detected (Not Detect); Parainfluenza Virus 1 Not Detected (Not Detect); Parainfluenza Virus 2 Not Detected (Not Detect); Parainfluenza Virus 3 Not Detected (Not Detect); Parainfluenza Virus 4 Not Detected (Not Detect); Respiratory Syncytial Virus Not Detected (Not Detect); SARS-CoV-2 Not Detected (Not Detect)
[~2021-11-03 23:30] MED LIST changes: -Famotidine 20 MG/2 ML VIAL IVP PRN; -Naloxone 0.4 MG/ML INJ IVP PRN; -Ondansetron 4 MG/2 ML VIAL IVP PRN; +Potassium Citrate 10 MEQ TABLET.ER PO STA; +Ringers Solution, Lactated 1,000 ML IVC ONE; +Ringers Solution, Lactated 1,000 ML ONE; +cefTRIAXone 2,000 MG in 0.9 % Sodium Chloride Mini Bag 100 ML IVPB ONE
== END | disposition home or self-care (01) ==
LOC: 1NENULAB
PROVIDERS: ADMIT Advanced Practice Midwife; ATTEND Advanced Practice Midwife

== ENCOUNTER 2021-11-11 16:42 | Observation (INO) ==
[2021-11-11 17:57] LABS: Adenovirus Not Detected (Not Detect); Bordetella Pertussis Not Detected (Not Detect); Chlamydophila pneumoniae Not Detected (Not Detect); Coronavirus 229E Not Detected (Not Detect); Coronavirus HKU1 Not Detected (Not Detect); Coronavirus NL63 Not Detected (Not Detect); Coronavirus OC43 Not Detected (Not Detect); Human Metapneumovirus Not Detected (Not Detect); Human Rhinovirus/Enterovirus Not Detected (Not Detect); Influenza A Subtype 2009 H1 Not Detected (Not Detect); Influenza B Not Detected (Not Detect); Mycoplasma pneumoniae Not Detected (Not Detect); Parainfluenza Virus 1 Not Detected (Not Detect); Parainfluenza Virus 2 Not Detected (Not Detect); Parainfluenza Virus 3 Not Detected (Not Detect); Parainfluenza Virus 4 Not Detected (Not Detect); Respiratory Syncytial Virus Not Detected (Not Detect); SARS-CoV-2 Not Detected (Not Detect)
[2021-11-11] MEDS ORDERED: Ondansetron 4 MG/2 ML VIAL IVP PRN (18:05)
[2021-11-11] MEDS ORDERED: Ringers Solution, Lactated 1,000 ML IVC SCH (18:15)
[2021-11-11 18:50] LABS: Bilirubin,Urine Small (Negative); Blood,Urine Negative (Negative); Clarity,Urine Turbid (Clear); Color,Urine Orange (Yellow); Glucose,Urine (UA) Normal (Normal); Ketones,Urine 80 mg/dL (Negative); Leukocyte Esterase,Urine Trace (Negative); Mucus,Urine Many per lpf (None-Few); Nitrite,Urine Negative (Negative); PH,Urine 6.5 pH Units (5.0-8.0); Protein,Urine 100 mg/dL (Neg-Trace); Squamous Epithelial Cell,Urine Many per hpf (None-Few); Transitional Epi Cells,Urine Few per hpf (None-Few); Urobilinogen,Urine >=8.0 mg/dL (Normal)
[2021-11-11] MEDS ORDERED: Scopolamine Patch 1.5 MG PATCH.TD72 TD SCH (19:00)
== END 2021-11-11 20:20 | disposition home or self-care (01) ==
LOC: 1NENULAB
PROVIDERS: ADMIT Obstetrics & Gynecology; ATTEND Obstetrics & Gynecology

== ENCOUNTER → 2021-11-14 23:00 | Observation (INO) ==
[2021-11-14 20:51] LABS: Bacteria,Urine Few per hpf (None-Few); Bilirubin,Urine Negative (Negative); Blood,Urine Negative (Negative); Clarity,Urine Turbid (Clear); Color,Urine Yellow (Yellow); Glucose,Urine (UA) Normal (Normal); Ketones,Urine 10 mg/dL (Negative); Leukocyte Esterase,Urine Small (Negative); Mucus,Urine Many per lpf (None-Few); Nitrite,Urine Negative (Negative); Protein,Urine 100 mg/dL (Neg-Trace); RBC,Urine 0-3 per hpf (0-3); Specific Gravity,Urine > 1.030 (1.010-1.025); Squamous Epithelial Cell,Urine Many per hpf (None-Few)
[2021-11-14 23:11] LABS: Candida DNA Not Detected (Not Detect); Gardnerella DNA Not Detected (Not Detect); Trichomonas DNA Not Detected (Not Detect)
== END | disposition home or self-care (01) ==
LOC: 1NENULAB
PROVIDERS: ADMIT Advanced Practice Midwife; ATTEND Advanced Practice Midwife

== ENCOUNTER → 2021-12-06 22:30 | Observation (INO) ==
[2021-12-06] MEDS: Ringers Solution, Lactated 1,000 ML IVC ONE ×2 (17:13→18:20)
[2021-12-06 17:17] LABS: Basophils % 0.5 %; Eosinophils % 0.2 %; Hematocrit 29.9 % (35.3-44.9); Hemoglobin 10.2 g/dL (11.5-15.4); Lymphocytes # 1.2 K/mcL (0.6-4.6); Lymphocytes % 20.9 %; Mean Corpuscular HGB Conc 34.1 g/dL (31.6-35.5); Mean Corpuscular Volume 96.8 fL (83.0-100.0); Mean Platelet Volume 9.7 fL (9.4-12.4); Monocytes # 0.3 K/mcL (0.0-1.3); Monocytes % 4.9 %; Neutrophils # 4.2 K/mcL (1.6-8.9); Nucleated Red Blood Cells 0.3 /100 WBC (0); Platelet Count 195 K/mcL (140-400); Red Blood Count 3.09 M/mcL (3.82-4.97); Red Cell Distribution Width 17.2 % (11.5-14.5); Segmented Neutrophils % 72.5 %; White Blood Count 5.7 K/mcL (4.3-11.1)
[2021-12-06 17:37] LABS: Alanine Aminotransferase 7 Units/L (7-52); Albumin 3.7 g/dL (3.5-5.7); Albumin/Globulin Ratio 1.4 (1.1-2.2); Alkaline Phosphatase 82 Units/L (34-104); Aspartate Amino Transferase 14 Units/L (13-39); BUN/Creatinine Ratio 16 (6-26); Bilirubin,Total 0.9 mg/dL (0.3-1.0); Blood Urea Nitrogen 10 mg/dL (6-20); Calcium 8.7 mg/dL (8.6-10.3); Carbon Dioxide 19 mEq/L (23-29); Chloride 99 mEq/L (98-107); Globulin 2.7 g/dL (2.4-3.5); Glucose 83 mg/dL (70-105); Osmolality,Calculated 272 (280-300); Potassium 3.3 mEq/L (3.5-5.1); Sodium 132 mEq/L (136-145); Total Protein 6.4 g/dL (6.4-8.9)
[2021-12-06 18:14] LABS: Adenovirus Not Detected (Not Detect); Bordetella Pertussis Not Detected (Not Detect); Chlamydophila pneumoniae Not Detected (Not Detect); Coronavirus 229E Not Detected (Not Detect); Coronavirus HKU1 Not Detected (Not Detect); Coronavirus NL63 Not Detected (Not Detect); Coronavirus OC43 Not Detected (Not Detect); Human Metapneumovirus Not Detected (Not Detect); Human Rhinovirus/Enterovirus Not Detected (Not Detect); Influenza A Subtype 2009 H1 Not Detected (Not Detect); Influenza B Not Detected (Not Detect); Mycoplasma pneumoniae Not Detected (Not Detect); Parainfluenza Virus 1 DETECTED (Not Detect); Parainfluenza Virus 2 Not Detected (Not Detect); Parainfluenza Virus 3 Not Detected (Not Detect); Parainfluenza Virus 4 Not Detected (Not Detect); Respiratory Syncytial Virus Not Detected (Not Detect); SARS-CoV-2 Not Detected (Not Detect)
[2021-12-06 20:02] VITALS: O2SAT 100
[2021-12-06 20:29] LABS: Bacteria,Urine Few per hpf (None-Few); Bilirubin,Urine Negative (Negative); Blood,Urine Negative (Negative); Clarity,Urine Turbid (Clear); Color,Urine Yellow (Yellow); Glucose,Urine (UA) Normal (Normal); Hyaline Casts,Urine Many per lpf (None Seen); Ketones,Urine >150 mg/dL (Negative); Leukocyte Esterase,Urine Negative (Negative); Mucus,Urine Many per lpf (None-Few); Nitrite,Urine Negative (Negative); Protein,Urine 100 mg/dL (Neg-Trace); RBC,Urine 0-3 per hpf (0-3); Specific Gravity,Urine > 1.030 (1.010-1.025); Squamous Epithelial Cell,Urine Few per hpf (None-Few); WBC,Urine 0-3 per hpf (0-3)
[~2021-12-06 22:30] MED LIST changes: +Acetaminophen IV 1,000 MG/100 ML BAG IVPB ONE; +Albuterol 2.5 MG/3 ML NEBULIZER IH ONE; +Betamethasone Acet/SodPhos 30 MG/5 ML VIAL IM SCH; +Metoclopramide 10 MG/2 ML VIAL IVP ONE; +Ondansetron 4 MG/2 ML VIAL IVP ONE; -Potassium Citrate 10 MEQ TABLET.ER PO STA; -Ringers Solution, Lactated 1,000 ML IVC ONE; +Ringers Solution, Lactated 1,000 ML IVC SCH; -Ringers Solution, Lactated 1,000 ML ONE; +Saline Nasal Spray 44 ML BOTTLE NS PRN; -cefTRIAXone 2,000 MG in 0.9 % Sodium Chloride Mini Bag 100 ML IVPB ONE
== END | disposition home or self-care (01) ==
LOC: 1NENULAB
PROVIDERS: ADMIT Advanced Practice Midwife; ATTEND Advanced Practice Midwife

== ENCOUNTER → 2021-12-07 17:25 | Observation (INO) ==
[~2021-12-07 17:25] MED LIST changes: -Acetaminophen IV 1,000 MG/100 ML BAG IVPB ONE; -Albuterol 2.5 MG/3 ML NEBULIZER IH ONE; -Metoclopramide 10 MG/2 ML VIAL IVP ONE; -Ondansetron 4 MG/2 ML VIAL IVP ONE; -Ringers Solution, Lactated 1,000 ML IVC SCH; -Saline Nasal Spray 44 ML BOTTLE NS PRN
== END | disposition home or self-care (01) ==
LOC: 1NENULAB
PROVIDERS: ADMIT Obstetrics & Gynecology; ATTEND Obstetrics & Gynecology